=== PATIENT | female | born 1960 | race Two or more races ===

== ENCOUNTER 2017-09-22 18:24 | Emergency (ER) | payer MEDICAID ==
[~2017-09-22] VITALS: Ht 165.1 cm; Wt 62.6 kg
[~2017-09-22 18:24] MED LIST: ATOR20TA50; HYDR-4683 PO; MET25T PO; NAP500T PO; OXY10CRT PO; [UNRECOGNIZED DRUG - CODE] IV
[2017-09-22] MEDS ORDERED: ONDANSETRON HCL 4 MG/2 ML VIAL IV ONE (19:45)
[2017-09-22] MEDS ORDERED: MORPHINE SULFATE 4 MG/ML SYR/VIAL IV ONE (19:45)
[2017-09-22] MEDS ORDERED: cloNIDine HCL 0.1 MG TAB PO ONE (19:45)
[2017-09-22 20:49] LABS: Eosinophils # (auto) 0.2 uL; Monocytes # (auto) 0.6 uL; Neutrophils # (auto) 7.4 uL
[2017-09-22 20:52] LABS: Basophils # (auto) 0.1 uL; Basophils % (auto) 0.9 % (0.0-2.0); Eosinophils % (auto) 1.9 % (0.0-7.0); Hematocrit 42.6 % (36.0-46.0); Hemoglobin 14.6 g/dL (12.2-16.2); Lymphocytes # (auto) 1.1 uL; Mean Corpuscular Hgb Conc. 34.4 g/dL (32.0-36.0); Mean Corpuscular Volume 98.9 fL (80.0-100.0); Neutrophils % (auto) 79.2 % (37.0-80.0); Nucleated Red Blood Cells % 0.1 %; Platelet Count (auto) 265 10^3/uL (140-450); Red Cell Distribution Width 12.9 % (11.8-14.3); White Blood Cell 9.3 10^3/uL (4.4-10.8)
[2017-09-22 20:54] LABS: Albumin 3.2 g/dL (3.4-5.0); BUN/Creatinine Ratio 11.8; Calcium 8.6 mg/dL (8.5-10.1); Potassium 3.5 mmol/L (3.5-5.1)
[2017-09-22 20:59] LABS: Bilirubin, Total 0.5 mg/dL (0.2-1.0); Total Protein 7.1 g/dL (6.4-8.2)
[2017-09-22] MEDS ORDERED: IOHEXOL 350 MG/ML 100ML IJ ONE (21:28)
[2017-09-22 23:33] VITALS: BP 120/69
== END 2017-09-23 02:34 | disposition home or self-care (01) ==
LOC: ER 18:24
DX: S46.912A Strain of unspecified muscle, fascia and tendon at shoulder and upper arm level, left arm, initial encounter (principal); S66.912A Strain of unspecified muscle, fascia and tendon at wrist and hand level, left hand, initial encounter; R07.89 Other chest pain; J45.909 Unspecified asthma, uncomplicated; I10 Essential (primary) hypertension; Z86.73 Personal history of transient ischemic attack (TIA), and cerebral infarction without residual deficits; Z98.51 Tubal ligation status; W19.XXXA Unspecified fall, initial encounter; Y93.89 Activity, other specified; Y99.8 Other external cause status; Y92.89 Other specified places as the place of occurrence of the external cause
CPT/HCPCS: 36415; 71046; 71275; 73060; 73090; 73120; 80053; 83880; 84484; 85025; 85379; 93005; 96374; 96375; 99285; J2270; J2405; Q9967

== ENCOUNTER 2017-12-09 13:33 | Inpatient (IN) | payer MEDICAID ==
[~2017-12-09] VITALS: Ht 165.1 cm; Wt 73.3 kg
[2017-12-09] MEDS ORDERED: SODIUM CHLORIDE 0.9% 1,000 ML IV ONE (14:27)
[2017-12-09] MEDS ORDERED: cefTRIAXone 1GM/10ml IVPUSH 10 ML IV ONE (14:30)
[2017-12-09] MEDS ORDERED: VANCOMYCIN 1GM/250ML 250 ML IV ONE (14:30)
[2017-12-09 15:07] LABS: Basophils # (auto) 0 uL; Basophils % (auto) 0.2 % (0.0-2.0); Eosinophils # (auto) 0 uL; Hemoglobin 12.8 g/dL (12.2-16.2)
[2017-12-09 15:08] LABS: Eosinophils % (auto) 0.1 % (0.0-7.0); Hematocrit 37.5 % (36.0-46.0); Lymphocytes # (auto) 0.5 uL; Lymphocytes % (auto) 3.7 % (10.0-50.0); Mean Corpuscular Hemoglobin 33.3 pg (28.0-32.0); Mean Corpuscular Hgb Conc. 34.1 g/dL (32.0-36.0); Mean Corpuscular Volume 97.7 fL (80.0-100.0); Monocytes # (auto) 0.7 uL; Monocytes % (auto) 5.3 % (0.0-12.0); Neutrophils % (auto) 90.7 % (37.0-80.0); Platelet Count (auto) 528 10^3/uL (140-450); Red Blood Cells 3.84 10^6/uL (4.0-5.20); Red Cell Distribution Width 12.8 % (11.8-14.3); White Blood Cell 13.3 10^3/uL (4.4-10.8)
[2017-12-09 15:26] LABS: Alanine Aminotransferase 18 U/L (13-56); Albumin 2.9 g/dL (3.4-5.0); Alkaline Phosphatase 83 U/L (45-117); Anion Gap 9 (5-15); Aspartate Aminotransferase 13 U/L (15-37); BUN/Creatinine Ratio 6.9; Bilirubin, Total 0.7 mg/dL (0.2-1.0); Blood Urea Nitrogen 6 mg/dL (7-18); Calcium 8.9 mg/dL (8.5-10.1); Carbon Dioxide 26 mmol/L (21-32); Chloride 100 mmol/L (98-107); GFR African American 87 mL/min; GFR Non-African American 72 mL/min; Glucose 118 mg/dL (74-106); Potassium 3.4 mmol/L (3.5-5.1); Sodium 135 mmol/L (136-145)
[2017-12-09 15:27] LABS: INR 1.07 (0.9-1.15); Prothrombin Time 11.4 sec (9.27-12.13)
[2017-12-09] MEDS: SODIUM CHLORIDE 0.9% 1,000 ML IV SCH (16:56)
[2017-12-09] MEDS ORDERED: TEMAZEPAM 15 MG CAP PO PRN (17:00)
[2017-12-09] MEDS ORDERED: ACETAMINOPHEN 500 MG TAB PO PRN (17:00)
[2017-12-09] MEDS ORDERED: VANCOMYCIN PER PHARMACY 0 MG IV SCH (17:00)
[2017-12-09] MEDS ORDERED: LORazepam 0.5 MG TAB PO PRN (17:00)
[2017-12-09] MEDS ORDERED: POTASSIUM CHL 20 Meq TABLET PO ONE (17:00)
[2017-12-09] MEDS ORDERED: LACTULOSE 20Gm/30ML SOLN PO PRN (17:00)
[2017-12-09] MEDS ORDERED: MORPHINE SULF INJ 2 MG/ML SYRINGE 1ML IV PRN (17:00)
[2017-12-09] MEDS ORDERED: PROMETHAZINE HCL 25 MG/ML 1ML IV PRN (17:00)
[2017-12-09] MEDS ORDERED: NITROGLYCERIN 0.4 MG SL TAB SL PRN (17:00)
[2017-12-09 17:44] LABS: CRP High Sensitivity 16.2 mg/dL (< 0.3); Uric Acid 7.2 mg/dL (2.6-6.0)
[2017-12-09] MEDS: MORPHINE SULFATE 4 MG/ML SYR/VIAL IV PRN ×2 (17:47→21:24)
[2017-12-09 18:30] VITALS: BP 138/62
[2017-12-09 19:50] VITALS: BP 119/72
[2017-12-09 20:33] LABS: Urine Bacteria FEW /hpf (None Seen); Urine Blood Negative /uL (Negative); Urine Specific Gravity 1.008 (1.001-1.035); Urine WBC 9 /hpf (0 - 5)
[2017-12-09 22:00] VITALS: BP 119/74
[2017-12-09] MEDS ORDERED: COLCHICINE 0.6 MG TAB PO ONE (23:15)
[2017-12-10] MEDS ORDERED: NAPROXEN 500 MG TAB PO ONE
[2017-12-10] MEDS: SODIUM CHLORIDE 0.9% 1,000 ML IV SCH (03:02)
[2017-12-10] MEDS: VANCOMYCIN 1GM/250ML 250 ML IV SCH ×2 (03:02→15:26)
[2017-12-10] MEDS: MORPHINE SULFATE 4 MG/ML SYR/VIAL IV PRN ×3 (03:51→20:30)
[2017-12-10 05:00] VITALS: BP 120/71
[2017-12-10] MEDS ORDERED: COLCHICINE 0.6 MG TAB PO ONE (05:00)
[2017-12-10 05:56] LABS: Basophils # (auto) 0 uL; Basophils % (auto) 0.5 % (0.0-2.0); Eosinophils # (auto) 0.1 uL; Eosinophils % (auto) 0.6 % (0.0-7.0); Hematocrit 31.3 % (36.0-46.0); Hemoglobin 10.7 g/dL (12.2-16.2); Lymphocytes # (auto) 0.4 uL; Lymphocytes % (auto) 4.4 % (10.0-50.0); Mean Corpuscular Hemoglobin 33.2 pg (28.0-32.0); Mean Corpuscular Hgb Conc. 34.1 g/dL (32.0-36.0); Mean Corpuscular Volume 97.4 fL (80.0-100.0); Monocytes # (auto) 0.7 uL; Monocytes % (auto) 8.3 % (0.0-12.0); Neutrophils # (auto) 7.3 uL; Neutrophils % (auto) 86.2 % (37.0-80.0); Nucleated Red Blood Cells % 0.1 %; Platelet Count (auto) 408 10^3/uL (140-450); Red Blood Cells 3.21 10^6/uL (4.0-5.20); Red Cell Distribution Width 12.7 % (11.8-14.3); White Blood Cell 8.5 10^3/uL (4.4-10.8)
[2017-12-10 06:19] LABS: Albumin 2.4 g/dL (3.4-5.0); BUN/Creatinine Ratio 9.9; Bilirubin, Total 0.6 mg/dL (0.2-1.0); Calcium 8.4 mg/dL (8.5-10.1); Potassium 3.7 mmol/L (3.5-5.1); Total Protein 6.2 g/dL (6.4-8.2)
[2017-12-10] MEDS: cefTRIAXone 1GM/10ml IVPUSH 10 ML IV SCH (08:41)
[2017-12-10 08:58] VITALS: BP 116/70
[2017-12-10] MEDS: COLCHICINE 0.6 MG TAB PO SCH ×2 (11:17→21:19)
[2017-12-10] MEDS: NAPROXEN 500 MG TAB PO SCH ×2 (11:17→21:19)
[2017-12-10] MEDS: PANTOPRAZOLE 40 MG TAB PO SCH (11:17)
[2017-12-10 14:11] VITALS: BP 126/77
[2017-12-10] MEDS: HYDROcodone-ACET 5/325MG TAB PO PRN (15:12)
[2017-12-10 17:13] VITALS: BP 130/77
[2017-12-10 22:00] VITALS: BP 131/83
[2017-12-11] MEDS: MORPHINE SULFATE 4 MG/ML SYR/VIAL IV PRN ×2 (01:26→15:03)
[2017-12-11] MEDS: VANCOMYCIN 1GM/250ML 250 ML IV SCH (02:39)
[2017-12-11 05:00] VITALS: BP 122/78
[2017-12-11 07:00] LABS: Basophils # (auto) 0 uL; Basophils % (auto) 0.4 % (0.0-2.0); Eosinophils # (auto) 0.4 uL; Hematocrit 33.7 % (36.0-46.0); Hemoglobin 11.3 g/dL (12.2-16.2); Lymphocytes # (auto) 0.5 uL; Lymphocytes % (auto) 11.9 % (10.0-50.0); Mean Corpuscular Hemoglobin 32.6 pg (28.0-32.0); Mean Corpuscular Hgb Conc. 33.3 g/dL (32.0-36.0); Mean Corpuscular Volume 97.8 fL (80.0-100.0); Monocytes # (auto) 0.4 uL; Monocytes % (auto) 9.6 % (0.0-12.0); Neutrophils # (auto) 3.2 uL; Neutrophils % (auto) 70.1 % (37.0-80.0); Platelet Count (auto) 383 10^3/uL (140-450); Red Blood Cells 3.45 10^6/uL (4.0-5.20); Red Cell Distribution Width 12.5 % (11.8-14.3); White Blood Cell 4.5 10^3/uL (4.4-10.8)
[2017-12-11] MEDS: ALBUTEROL SULF 2.5 MG/0.5ML(0.5%) NEB SOLN NEB PRN (07:07)
[2017-12-11 09:00] VITALS: BP 135/74
[2017-12-11] MEDS: cefTRIAXone 1GM/10ml IVPUSH 10 ML IV SCH (09:34)
[2017-12-11] MEDS: COLCHICINE 0.6 MG TAB PO SCH ×2 (09:35→21:53)
[2017-12-11] MEDS: PANTOPRAZOLE 40 MG TAB PO SCH (09:35)
[2017-12-11] MEDS: NAPROXEN 500 MG TAB PO SCH ×2 (09:35→21:53)
[2017-12-11] MEDS: HYDROcodone-ACET 5/325MG TAB PO PRN (10:20)
[2017-12-11 13:22] VITALS: BP 138/71
[2017-12-11] MEDS: VANCOMYCIN 750 MG in D5W 5% 250 ML IV SCH (15:00)
[2017-12-11 17:26] VITALS: BP 146/77
[2017-12-11 22:00] VITALS: BP 155/86
[2017-12-12] MEDS: MORPHINE SULFATE 4 MG/ML SYR/VIAL IV PRN ×5 (00:38→23:34)
[2017-12-12] MEDS: VANCOMYCIN 750 MG in D5W 5% 250 ML IV SCH (02:31)
[2017-12-12 05:00] VITALS: BP 143/86
[2017-12-12 09:00] VITALS: BP 134/77
[2017-12-12] MEDS: COLCHICINE 0.6 MG TAB PO SCH ×2 (09:41→21:29)
[2017-12-12] MEDS: cefTRIAXone 1GM/10ml IVPUSH 10 ML IV SCH (09:41)
[2017-12-12] MEDS: PANTOPRAZOLE 40 MG TAB PO SCH (09:42)
[2017-12-12] MEDS: NAPROXEN 500 MG TAB PO SCH ×2 (09:51→21:30)
[2017-12-12] MEDS: HYDROcodone-ACET 5/325MG TAB PO PRN ×2 (10:05→21:30)
[2017-12-12] MEDS ORDERED: FLUCONAZOLE 100 MG TAB PO ONE (10:15)
[2017-12-12 10:30] LABS: BUN/Creatinine Ratio 10.8; Potassium 3.5 mmol/L (3.5-5.1)
[2017-12-12 13:00] VITALS: BP 160/97
[2017-12-12 13:24] VITALS: BP 133/74
[2017-12-12 17:00] VITALS: BP 150/84
[2017-12-12 21:35] VITALS: BP 137/85
[2017-12-13] MEDS: MORPHINE SULFATE 4 MG/ML SYR/VIAL IV PRN ×2 (00:15→07:42)
[2017-12-13 05:41] VITALS: BP 135/75
[2017-12-13] MEDS: ALBUTEROL SULF 2.5 MG/0.5ML(0.5%) NEB SOLN NEB PRN (06:12)
[2017-12-13 08:11] LABS: Eosinophils # (auto) 0.4 uL; Lymphocytes % (auto) 21.4 % (10.0-50.0); Mean Corpuscular Hemoglobin 32.5 pg (28.0-32.0); Monocytes # (auto) 0.5 uL; Neutrophils # (auto) 2.8 uL
[2017-12-13 08:12] LABS: Basophils # (auto) 0 uL; Basophils % (auto) 0.9 % (0.0-2.0); Hematocrit 34.3 % (36.0-46.0); Hemoglobin 11.4 g/dL (12.2-16.2); Mean Corpuscular Hgb Conc. 33.2 g/dL (32.0-36.0); Mean Corpuscular Volume 97.8 fL (80.0-100.0); Neutrophils % (auto) 57.7 % (37.0-80.0); Platelet Count (auto) 474 10^3/uL (140-450); Red Cell Distribution Width 12.7 % (11.8-14.3); White Blood Cell 4.8 10^3/uL (4.4-10.8)
[2017-12-13 09:00] VITALS: BP 143/81
[2017-12-13] MEDS: cefTRIAXone 1GM/10ml IVPUSH 10 ML IV SCH (09:47)
[2017-12-13] MEDS: PANTOPRAZOLE 40 MG TAB PO SCH (09:48)
[2017-12-13] MEDS: COLCHICINE 0.6 MG TAB PO SCH (09:48)
[2017-12-13] MEDS ORDERED: FLUCONAZOLE 100 MG TAB PO SCH (10:00)
[2017-12-13] MEDS: NAPROXEN 500 MG TAB PO SCH (10:06)
[2017-12-13] MEDS ORDERED: cefTAZidime 1 GM in SODIUM CHL 0.9% 50 ML IV ONE (10:45)
[2017-12-13 13:00] VITALS: BP 124/73
[2017-12-13] MEDS ORDERED: cefTAZidime 1 GM in SODIUM CHL 0.9% 50 ML IV SCH (14:00)
== END 2017-12-13 14:45 | disposition home or self-care (01) | DRG 720 ==
LOC: ER 13:33 → EDBD 13:33 → TELE 13:34 → TELE-CENTR 18:28 → CENTRAL 12-10 19:10
PROVIDERS: ADMIT Internal Medicine; ATTEND Internal Medicine
PROC: 0S9C3ZZ Drainage of Right Knee Joint, Percutaneous Approach (ICD-10-PCS; principal; 2017-12-09)
DX: A41.9 Sepsis, unspecified organism (principal); E44.0 Moderate protein-calorie malnutrition; G90.522 Complex regional pain syndrome I of left lower limb; I10 Essential (primary) hypertension; L03.116 Cellulitis of left lower limb; J45.909 Unspecified asthma, uncomplicated; Z82.5 Family history of asthma and other chronic lower respiratory diseases; B96.5 Pseudomonas (aeruginosa) (mallei) (pseudomallei) as the cause of diseases classified elsewhere; E78.5 Hyperlipidemia, unspecified; G40.909 Epilepsy, unspecified, not intractable, without status epilepticus; L03.115 Cellulitis of right lower limb; M10.9 Gout, unspecified; F41.9 Anxiety disorder, unspecified; M17.11 Unilateral primary osteoarthritis, right knee; M20.10 Hallux valgus (acquired), unspecified foot; M20.41 Other hammer toe(s) (acquired), right foot; N39.0 Urinary tract infection, site not specified; Z88.2 Allergy status to sulfonamides; Z88.1 Allergy status to other antibiotic agents; Z88.0 Allergy status to penicillin; Z79.899 Other long term (current) drug therapy; Z86.73 Personal history of transient ischemic attack (TIA), and cerebral infarction without residual deficits; Z98.51 Tubal ligation status; Z83.3 Family history of diabetes mellitus; Z82.49 Family history of ischemic heart disease and other diseases of the circulatory system; Z82.61 Family history of arthritis; Z81.8 Family history of other mental and behavioral disorders; Z82.0 Family history of epilepsy and other diseases of the nervous system; Z82.3 Family history of stroke; Z84.1 Family history of disorders of kidney and ureter; Z83.2 Family history of diseases of the blood and blood-forming organs and certain disorders involving the immune mechanism; Z87.442 Personal history of urinary calculi
CPT/HCPCS: 36415; 71045; 73620; 78315; 80048; 80053; 80202; 81001; 83880; 84443; 84484; 84550; 85025; 85610; 85652; 85730; 86141; 86431; 86850; 86900; 86901; 87040; 87086; 87088; 87186; 87205; 89051; 89060; 93306; 93970; 94640; 96361; 96374; 96375; 97116; 97163; 97530; J0696; J7060

== ENCOUNTER 2018-03-03 17:25 | Inpatient (IN) | payer MEDICAID ==
[~2018-03-03] VITALS: Ht 165.1 cm; Wt 71.9 kg
[2018-03-03] MEDS ORDERED: MORPHINE SULFATE 4 MG/ML SYR/VIAL IV ONE ×3 (18:30→21:00)
[2018-03-03] MEDS ORDERED: ONDANSETRON HCL 4 MG/2 ML VIAL IV ONE (18:30)
[2018-03-03 18:54] LABS: Basophils # (auto) 0 uL; Basophils % (auto) 0.2 % (0.0-2.0); Eosinophils # (auto) 0.1 uL; Hematocrit 41.4 % (36.0-46.0); Hemoglobin 14.1 g/dL (12.2-16.2); Lymphocytes % (auto) 10.6 % (10.0-50.0); Mean Corpuscular Hemoglobin 32.6 pg (28.0-32.0); Monocytes # (auto) 0.5 uL; Monocytes % (auto) 5.1 % (0.0-12.0); Neutrophils # (auto) 7.6 uL; Neutrophils % (auto) 83.1 % (37.0-80.0); Platelet Count (auto) 315 10^3/uL (140-450); Red Blood Cells 4.32 10^6/uL (4.0-5.20); Red Cell Distribution Width 14.8 % (11.8-14.3); White Blood Cell 9.1 10^3/uL (4.4-10.8)
[2018-03-03 19:11] LABS: Albumin 3.5 g/dL (3.4-5.0); Calcium 8.7 mg/dL (8.5-10.1); Magnesium 2.5 mg/dL (1.6-2.6); Potassium 3.1 mmol/L (3.5-5.1)
[2018-03-03 19:18] LABS: BUN/Creatinine Ratio 10.4; Bilirubin, Total 0.2 mg/dL (0.2-1.0); Total Protein 7.2 g/dL (6.4-8.2)
[2018-03-03] MEDS ORDERED: ACETAMINOPHEN 500 MG TAB PO PRN (21:30)
[2018-03-03] MEDS ORDERED: ONDANSETRON HCL 4 MG/2 ML VIAL IV PRN (21:30)
[2018-03-03] MEDS: ATORVASTATIN 20 MG TAB PO SCH (22:55)
[2018-03-03] MEDS: METOPROLOL TARTRATE 25 MG TAB PO SCH (22:55)
[2018-03-03 23:00] VITALS: BP 162/99
[2018-03-03] MEDS ORDERED: ATOR20TA PO (23:31)
[2018-03-03] MEDS ORDERED: OXY10CRT PO (23:32)
[2018-03-03] MEDS ORDERED: MORP15TA PO (23:34)
[2018-03-03] MEDS ORDERED: METH-562 PO (23:34)
[2018-03-04 00:07] LABS: Urine Bacteria FEW /hpf (None Seen); Urine Blood Negative /uL (Negative); Urine Mucus FEW (None Seen); Urine Specific Gravity 1.005 (1.001-1.035); Urine WBC <1 /hpf (0 - 5)
[2018-03-04] MEDS: HYDROcodone-ACET 5/325MG TAB PO PRN ×3 (00:39→10:54)
[2018-03-04] MEDS: MORPHINE SULFATE 4 MG/ML SYR/VIAL IV PRN ×4 (01:30→20:59)
[2018-03-04 05:23] VITALS: BP 143/96
[2018-03-04 07:13] LABS: Basophils # (auto) 0 uL; Basophils % (auto) 0.4 % (0.0-2.0); Eosinophils # (auto) 0 uL; Eosinophils % (auto) 0.5 % (0.0-7.0); Hemoglobin 13.1 g/dL (12.2-16.2); Lymphocytes # (auto) 1.6 uL; Lymphocytes % (auto) 15.9 % (10.0-50.0); Mean Corpuscular Hemoglobin 32.5 pg (28.0-32.0); Mean Corpuscular Hgb Conc. 33.5 g/dL (32.0-36.0); Mean Corpuscular Volume 96.8 fL (80.0-100.0); Monocytes # (auto) 0.8 uL; Monocytes % (auto) 8.6 % (0.0-12.0); Neutrophils # (auto) 7.3 uL; Neutrophils % (auto) 74.6 % (37.0-80.0); Nucleated Red Blood Cells % 0.1 %; Platelet Count (auto) 299 10^3/uL (140-450); Red Blood Cells 4.02 10^6/uL (4.0-5.20); White Blood Cell 9.8 10^3/uL (4.4-10.8)
[2018-03-04 07:26] LABS: Potassium 3.5 mmol/L (3.5-5.1)
[2018-03-04 07:29] LABS: BUN/Creatinine Ratio 13.6
[2018-03-04 07:34] LABS: Calcium 8.2 mg/dL (8.5-10.1)
[2018-03-04 08:30] VITALS: BP 145/87
[2018-03-04] MEDS: METOPROLOL TARTRATE 25 MG TAB PO SCH ×2 (10:51→21:26)
[2018-03-04 12:06] VITALS: BP 151/84
[2018-03-04 17:16] VITALS: BP 154/88
[2018-03-04] MEDS: ATORVASTATIN 20 MG TAB PO SCH (21:25)
[2018-03-04 22:00] VITALS: BP 163/95
[2018-03-05 05:00] VITALS: BP 167/89
[2018-03-05 07:51] LABS: Basophils # (auto) 0 uL; Basophils % (auto) 0.2 % (0.0-2.0); Eosinophils # (auto) 0.1 uL; Hematocrit 37.9 % (36.0-46.0); Hemoglobin 12.9 g/dL (12.2-16.2); Lymphocytes # (auto) 0.9 uL; Lymphocytes % (auto) 7.4 % (10.0-50.0); Mean Corpuscular Hgb Conc. 34.1 g/dL (32.0-36.0); Mean Corpuscular Volume 96.8 fL (80.0-100.0); Monocytes # (auto) 0.7 uL; Monocytes % (auto) 5.9 % (0.0-12.0); Neutrophils # (auto) 10.2 uL; Neutrophils % (auto) 85.5 % (37.0-80.0); Platelet Count (auto) 286 10^3/uL (140-450); Red Blood Cells 3.91 10^6/uL (4.0-5.20); Red Cell Distribution Width 14.8 % (11.8-14.3); White Blood Cell 11.9 10^3/uL (4.4-10.8)
[2018-03-05 08:02] LABS: BUN/Creatinine Ratio 10.8; Calcium 8.8 mg/dL (8.5-10.1)
[2018-03-05] MEDS: MORPHINE SULFATE 4 MG/ML SYR/VIAL IV PRN (08:11)
[2018-03-05 09:20] VITALS: BP 150/86
[2018-03-05] MEDS: METOPROLOL TARTRATE 25 MG TAB PO SCH ×2 (10:24→21:25)
[2018-03-05] MEDS ORDERED: COLCPOW2 PO (12:59)
[2018-03-05 13:11] VITALS: BP 152/84
[2018-03-05] MEDS: oxyCODONE ER 10 MG TAB PO SCH ×2 (14:02→21:23)
[2018-03-05 16:57] VITALS: BP 141/82
[2018-03-05] MEDS: ATORVASTATIN 20 MG TAB PO SCH (21:23)
[2018-03-05] MEDS: MORPHINE SULF 15mg ER tab PO SCH (21:24)
[2018-03-05] MEDS: NAPROXEN 500 MG TAB PO SCH (21:24)
[2018-03-05] MEDS: METHOCARBAMOL 500 MG TAB PO SCH (21:24)
[2018-03-05] MEDS: COLCHICINE 0.6 MG CAP PO SCH (21:25)
[2018-03-05 21:39] VITALS: BP 144/87
[2018-03-06 04:43] VITALS: BP 119/77
[2018-03-06] MEDS: oxyCODONE ER 10 MG TAB PO SCH ×2 (05:33→15:14)
[2018-03-06 06:27] LABS: Basophils # (auto) 0 uL; Basophils % (auto) 0.3 % (0.0-2.0); Eosinophils # (auto) 0.3 uL; Eosinophils % (auto) 2.9 % (0.0-7.0); Hematocrit 37.6 % (36.0-46.0); Hemoglobin 12.8 g/dL (12.2-16.2); Lymphocytes # (auto) 1.3 uL; Lymphocytes % (auto) 13.7 % (10.0-50.0); Mean Corpuscular Hemoglobin 33.2 pg (28.0-32.0); Mean Corpuscular Hgb Conc. 33.9 g/dL (32.0-36.0); Mean Corpuscular Volume 97.9 fL (80.0-100.0); Monocytes % (auto) 10.3 % (0.0-12.0); Neutrophils # (auto) 6.8 uL; Neutrophils % (auto) 72.8 % (37.0-80.0); Platelet Count (auto) 274 10^3/uL (140-450); Red Blood Cells 3.85 10^6/uL (4.0-5.20); Red Cell Distribution Width 14.7 % (11.8-14.3); White Blood Cell 9.4 10^3/uL (4.4-10.8)
[2018-03-06 08:43] VITALS: BP 123/71
[2018-03-06] MEDS: METOPROLOL TARTRATE 25 MG TAB PO SCH (10:02)
[2018-03-06] MEDS: NAPROXEN 500 MG TAB PO SCH (10:03)
[2018-03-06] MEDS: MORPHINE SULF 15mg ER tab PO SCH (10:03)
[2018-03-06] MEDS: COLCHICINE 0.6 MG CAP PO SCH (10:03)
[2018-03-06] MEDS: METHOCARBAMOL 500 MG TAB PO SCH (10:03)
[2018-03-06 12:23] VITALS: BP 122/69
[2018-03-06 13:00] VITALS: BP 122/69
== END 2018-03-06 16:50 | disposition home or self-care (01) | DRG 342 ==
LOC: EDBD 17:25 → ER 17:25 → EDUNIT# 17:25 → CENTRAL 17:26
PROVIDERS: ADMIT Nurse Practitioner Family; ATTEND Internal Medicine
DX: S42.032A Displaced fracture of lateral end of left clavicle, initial encounter for closed fracture (principal); I69.354 Hemiplegia and hemiparesis following cerebral infarction affecting left non-dominant side; R56.9 Unspecified convulsions; E87.6 Hypokalemia; E78.5 Hyperlipidemia, unspecified; F41.9 Anxiety disorder, unspecified; W10.9XXA Fall (on) (from) unspecified stairs and steps, initial encounter; I10 Essential (primary) hypertension; J45.909 Unspecified asthma, uncomplicated; Z80.1 Family history of malignant neoplasm of trachea, bronchus and lung; Z80.41 Family history of malignant neoplasm of ovary; Z80.3 Family history of malignant neoplasm of breast; Z80.8 Family history of malignant neoplasm of other organs or systems; Z81.8 Family history of other mental and behavioral disorders; Z82.0 Family history of epilepsy and other diseases of the nervous system; Z82.49 Family history of ischemic heart disease and other diseases of the circulatory system; Z82.3 Family history of stroke; Z82.5 Family history of asthma and other chronic lower respiratory diseases; Z82.62 Family history of osteoporosis; Z83.3 Family history of diabetes mellitus; Z87.442 Personal history of urinary calculi; Z88.0 Allergy status to penicillin; Z88.2 Allergy status to sulfonamides; Z88.8 Allergy status to other drugs, medicaments and biological substances; Z88.1 Allergy status to other antibiotic agents; Z91.011 Allergy to milk products; Z98.51 Tubal ligation status; Y93.89 Activity, other specified; Y92.89 Other specified places as the place of occurrence of the external cause; Y99.8 Other external cause status
CPT/HCPCS: 36415; 70450; 71045; 71250; 72125; 73030; 80048; 80053; 80061; 81001; 83735; 84484; 85025; 96374; 96375; 96376; A6257; G0378; J2405

== ENCOUNTER 2018-09-06 13:00 | Emergency (ER) | payer MEDICAID ==
[~2018-09-06] VITALS: Ht 165.1 cm; Wt 68.0 kg
[~2018-09-06 13:00] MED LIST changes: +ATOR20TA PO; -ATOR20TA50; +COLCPOW2 PO; -HYDR-4683 PO; +METH-562 PO; +MORP15TA PO
[2018-09-06 13:18] VITALS: BP 202/101
[2018-09-06 14:54] LABS: Basophils # (auto) 0 uL; Basophils % (auto) 0.6 % (0.0-2.0); Hemoglobin 15.7 g/dL (12.2-16.2); Mean Corpuscular Hgb Conc. 34.5 g/dL (32.0-36.0); Neutrophils # (auto) 4.8 uL; Nucleated Red Blood Cells % 0.1 %
[2018-09-06 14:59] LABS: Eosinophils # (auto) 0.2 uL; Eosinophils % (auto) 3.6 % (0.0-7.0); Hematocrit 45.7 % (36.0-46.0); Lymphocytes # (auto) 1.3 uL; Lymphocytes % (auto) 19.1 % (10.0-50.0); Mean Corpuscular Hemoglobin 34.6 pg (28.0-32.0); Mean Corpuscular Volume 100.4 fL (80.0-100.0); Monocytes # (auto) 0.5 uL; Monocytes % (auto) 7.8 % (0.0-12.0); Neutrophils % (auto) 68.9 % (37.0-80.0); Platelet Count (auto) 330 10^3/uL (140-450); Red Blood Cells 4.55 10^6/uL (4.0-5.20); Red Cell Distribution Width 14.7 % (11.8-14.3)
[2018-09-06 15:24] LABS: Albumin 4.1 g/dL (3.4-5.0); Anion Gap 6 (5-15); Blood Urea Nitrogen 12 mg/dL (7-18); Calcium 9.2 mg/dL (8.5-10.1); Carbon Dioxide 29 mmol/L (21-32); Chloride 104 mmol/L (98-107); Glucose 85 mg/dL (74-106); Potassium 3.2 mmol/L (3.5-5.1); Sodium 139 mmol/L (136-145)
[2018-09-06 15:35] LABS: Alanine Aminotransferase 32 U/L (13-56); Alkaline Phosphatase 127 U/L (45-117); Aspartate Aminotransferase 28 U/L (15-37); BUN/Creatinine Ratio 13.3; Bilirubin, Total 0.4 mg/dL (0.2-1.0); GFR African American 83 mL/min; GFR Non-African American 69 mL/min; Total Protein 7.9 g/dL (6.4-8.2)
== END 2018-09-06 17:24 | disposition left against medical advice (07) ==
LOC: EDBD 13:00 → ER 13:00
DX: I10 Essential (primary) hypertension (principal); R51 Headache; R42 Dizziness and giddiness; Z53.21 Procedure and treatment not carried out due to patient leaving prior to being seen by health care provider
CPT/HCPCS: 36415; 70450; 80053; 84484; 85025; 93005

== ENCOUNTER 2019-10-13 12:50 | Inpatient (IN) | payer MEDICAID ==
[~2019-10-13] VITALS: Ht 165.1 cm; Wt 77.4 kg
[2019-10-13] MEDS ORDERED: cloNIDine HCL 0.1 MG TAB PO ONE (13:15)
[2019-10-13 13:24] LABS: Eosinophils % (auto) 0.4 % (0.0-7.0); Hemoglobin 15.5 g/dL (12.2-16.2); Monocytes # (auto) 0.7 10 ^3/uL (0-1.3); White Blood Cell 11.6 10^3/uL (4.4-10.8)
[2019-10-13 13:26] LABS: Basophils # (auto) 0 10 ^3/uL (0-0.2); Basophils % (auto) 0.3 % (0.0-2.0); Eosinophils # (auto) 0 10 ^3/uL (0-0.8); Hematocrit 45.6 % (36.0-46.0); Lymphocytes # (auto) 0.6 10 ^3/uL (0.4-5.4); Lymphocytes % (auto) 5.3 % (10.0-50.0); Mean Corpuscular Hemoglobin 34.8 pg (28.0-32.0); Mean Corpuscular Volume 102.5 fL (80.0-100.0); Neutrophils # (auto) 10.2 10 ^3/uL (1.6-8.6); Platelet Count (auto) 281 10^3/uL (140-450); Red Blood Cells 4.45 10^6/uL (4.0-5.20); Red Cell Distribution Width 14.2 % (11.8-14.3)
[2019-10-13 13:46] LABS: Albumin 3.7 g/dL (3.4-5.0); Anion Gap 6 (5-15); Blood Urea Nitrogen 11 mg/dL (7-18); Calcium 8.6 mg/dL (8.5-10.1); Carbon Dioxide 30 mmol/L (21-32); Chloride 102 mmol/L (98-107); Glucose 102 mg/dL (74-106); Potassium 3.4 mmol/L (3.5-5.1); Sodium 138 mmol/L (136-145)
[2019-10-13 13:51] LABS: Alanine Aminotransferase 27 U/L (13-56); Alkaline Phosphatase 111 U/L (45-117); Aspartate Aminotransferase 24 U/L (15-37); BUN/Creatinine Ratio 13.3; Bilirubin, Total 0.7 mg/dL (0.2-1.0); GFR African American 91 mL/min; GFR Non-African American 75 mL/min; Total Protein 7.1 g/dL (6.4-8.2)
[2019-10-13] MEDS ORDERED: SODIUM CHLORIDE 0.9% 1,000 ML IVB ONE (15:48)
[2019-10-13] MEDS ORDERED: ONDANSETRON HCL 4 MG/2 ML VIAL IV ONE (16:00)
[2019-10-13] MEDS ORDERED: MORPHINE SULF INJ 2 MG/ML SYRINGE 1ML IV ONE ×2 (16:00→18:30)
[2019-10-13] MEDS ORDERED: KETOROLAC TROMETH 30 MG/ML 1ML VIAL IV ONE (16:15)
[2019-10-13 17:10] LABS: Urine Bacteria MANY /hpf (None Seen); Urine Blood 2+ /uL (Negative); Urine Mucus FEW (None Seen); Urine Specific Gravity 1.008 (1.001-1.035); Urine WBC 296 /hpf (0 - 5); Urine WBC Clumps PRESENT /hpf (None Seen)
[2019-10-13] MEDS ORDERED: cefTRIAXone 1GM/50ML D5W 50 ML IV ONE (17:30)
[2019-10-13] MEDS ORDERED: PROMETHAZINE HCL 25 MG/ML 1ML ONE (18:26)
[2019-10-13] MEDS ORDERED: PROMETHAZINE HCL 25 MG/ML 1ML IV ONE (18:30)
[2019-10-13] MEDS ORDERED: hydrALAZINE HCL 20 MG/ML VL ONE (19:08)
[2019-10-13] MEDS ORDERED: hydrALAZINE HCL 20 MG/ML VL IV ONE (19:15)
[2019-10-13] MEDS ORDERED: IPRATROPIUM BROM 0.5 MG/2.5ML INH SOL NEB ONE (19:15)
[2019-10-13] MEDS ORDERED: ACETAMINOPHEN 325 MG TAB PO ONE (19:30)
[2019-10-13] MEDS: LEVALBUTEROL HCL 1.25 MG/3 ML NEB NEB SCH (19:38)
[2019-10-13] MEDS ORDERED: ACETAMINOPHEN 325 MG TAB PO PRN (21:15)
[2019-10-13] MEDS ORDERED: LORazepam 0.5 MG TAB PO PRN (21:15)
[2019-10-13] MEDS ORDERED: DOCUSATE SOD 100 MG CAP PO PRN (21:15)
[2019-10-13] MEDS: SODIUM CHLORIDE 0.9% 1,000 ML IV SCH (21:28)
--- NOTE | 2019-10-13 22:27 | NUR ---
MS admit from ER NIDIA HARTNA I admitted to tele/MS at 2227. Patient oriented to RAJWINDER YIN, RN primary RN, unit, room, bed, and unit policies regarding patient care and visiting hours. Bed in lowest position, brakes are locked, bed rails up X 2, call light is within reach. Patient placed on 2 lpm O2 via NC with SpO2 97%. Patient weighed by bed scale and encouraged to call if she needs something. All questions and concerns addressed, patient verbalized understanding. Will continue to monitor Q1H and/or PRN. Note: []Patient has Smith catheter, IV R. forearm 24 g.
[2019-10-13 22:32] VITALS: BP 122/76
[2019-10-13] MEDS: METOPROLOL TARTRATE 25 MG TAB PO SCH (23:10)
[2019-10-13] MEDS: oxyCODONE ER 10 MG TAB PO SCH (23:11)
[2019-10-13] MEDS: NAPROXEN 500 MG TAB PO SCH (23:11)
[2019-10-13] MEDS: METHOCARBAMOL 500 MG TAB PO SCH (23:12)
[2019-10-13 23:53] VITALS: BP 122/76
[2019-10-14] VITALS (7 sets, daily range): BP systolic 111–142; BP diastolic 70–85
[2019-10-14] MEDS: LEVALBUTEROL HCL 1.25 MG/3 ML NEB NEB SCH ×4 (00:30→18:05)
[2019-10-14 05:48] LABS: Basophils # (auto) 0 10 ^3/uL (0-0.2); Basophils % (auto) 0.1 % (0.0-2.0); Eosinophils # (auto) 0 10 ^3/uL (0-0.8); Hematocrit 38.9 % (36.0-46.0); Lymphocytes # (auto) 0.7 10 ^3/uL (0.4-5.4); Monocytes # (auto) 1.1 10 ^3/uL (0-1.3)
[2019-10-14 05:50] LABS: Hemoglobin 13.1 g/dL (12.2-16.2); Lymphocytes % (auto) 2.7 % (10.0-50.0); Mean Corpuscular Hemoglobin 35.3 pg (28.0-32.0); Mean Corpuscular Hgb Conc. 33.7 g/dL (32.0-36.0); Mean Corpuscular Volume 104.7 fL (80.0-100.0); Monocytes % (auto) 4.1 % (0.0-12.0); Neutrophils # (auto) 24.9 10 ^3/uL (1.6-8.6); Neutrophils % (auto) 93.1 % (37.0-80.0); Platelet Count (auto) 197 10^3/uL (140-450); Red Blood Cells 3.72 10^6/uL (4.0-5.20); Red Cell Distribution Width 14.4 % (11.8-14.3); White Blood Cell 26.8 10^3/uL (4.4-10.8)
[2019-10-14] MEDS: oxyCODONE ER 10 MG TAB PO SCH ×3 (05:54→22:24)
[2019-10-14 06:04] LABS: Potassium 3.1 mmol/L (3.5-5.1)
[2019-10-14 06:45] LABS: BUN/Creatinine Ratio 14.4; Calcium 7.3 mg/dL (8.5-10.1)
--- NOTE | 2019-10-14 07:15 | NUR ---
Urine specimen for bacterial culture was sent to lab.
--- NOTE | 2019-10-14 07:30 | NUR ---
Opening Shift Note Assumed care of patient, awake and alert. No S/S of distress/SOB. Pain reported to lower back. Pain management options discussed with patient. Instructed on POC and to call for assist PRN, will continue to monitor for changes Q1hr and PRN.
[2019-10-14] MEDS: SODIUM CHLORIDE 0.9% 1,000 ML IV SCH ×2 (07:36→17:34)
[2019-10-14] MEDS: NAPROXEN 500 MG TAB PO SCH ×2 (10:00→22:23)
[2019-10-14] MEDS: ATORVASTATIN 20 MG TAB PO SCH (10:16)
[2019-10-14] MEDS: METOPROLOL TARTRATE 25 MG TAB PO SCH ×2 (10:16→22:22)
[2019-10-14] MEDS: METHOCARBAMOL 500 MG TAB PO SCH ×2 (10:17→22:21)
[2019-10-14] MEDS: MORPHINE SULF INJ 2 MG/ML SYRINGE 1ML IV PRN ×2 (10:17→21:09)
[2019-10-14] MEDS: cefTRIAXone 1GM/50ML D5W 50 ML IV SCH (17:34)
--- NOTE | 2019-10-14 19:30 | NUR ---
Opening Shift Note Assumed care of patient, awake and alert. No S/S of distress/SOB or pain. Insructed on POC and to callfor assist PRN, will continue to monitor for changes Q1hr and PRN. Fall and safety precautions in place. Call light within reach.
[2019-10-15] MEDS: LEVALBUTEROL HCL 1.25 MG/3 ML NEB NEB SCH ×4 (00:12→18:28)
--- NOTE | 2019-10-15 00:15 | NUR ---
RT NOTE PT WAS SEEN BY RT FOR HHN TX. PT TOLERATES WELL VIA MASK. NO ADVERSE REACTION NOTED. Addendum: 10/15/19 at 0016 by Nereyda Burch RT Amended: Links added.
[2019-10-15] MEDS: MORPHINE SULF INJ 2 MG/ML SYRINGE 1ML IV PRN ×3 (04:02→23:34)
[2019-10-15] MEDS: SODIUM CHLORIDE 0.9% 1,000 ML IV SCH ×3 (04:22→23:55)
[2019-10-15 05:00] VITALS: BP 137/81
--- NOTE | 2019-10-15 05:00 | NUR ---
COVID SWAB Nasopharyngeal COVID swab obtained and given to lab per surgical protocol. Patient tolerated well.
[2019-10-15] MEDS: oxyCODONE ER 10 MG TAB PO SCH ×3 (05:44→21:22)
[2019-10-15 06:21] LABS: Basophils # (auto) 0 10 ^3/uL (0-0.2); Basophils % (auto) 0.1 % (0.0-2.0); Eosinophils # (auto) 0.2 10 ^3/uL (0-0.8); Eosinophils % (auto) 1.3 % (0.0-7.0); Hematocrit 38.4 % (36.0-46.0); Lymphocytes # (auto) 1.1 10 ^3/uL (0.4-5.4); Lymphocytes % (auto) 7.7 % (10.0-50.0); Mean Corpuscular Hemoglobin 35.4 pg (28.0-32.0); Mean Corpuscular Hgb Conc. 33.8 g/dL (32.0-36.0); Mean Corpuscular Volume 104.5 fL (80.0-100.0); Monocytes # (auto) 0.8 10 ^3/uL (0-1.3); Monocytes % (auto) 5.7 % (0.0-12.0); Neutrophils # (auto) 12.2 10 ^3/uL (1.6-8.6); Neutrophils % (auto) 85.2 % (37.0-80.0); Nucleated Red Blood Cells % 0.1 %; Platelet Count (auto) 194 10^3/uL (140-450); Red Blood Cells 3.67 10^6/uL (4.0-5.20); Red Cell Distribution Width 14.4 % (11.8-14.3); White Blood Cell 14.3 10^3/uL (4.4-10.8)
[2019-10-15 06:26] LABS: INR 1.07 (0.9-1.15); Partial Thromboplastin Time 30.2 sec (23.64-32.05)
[2019-10-15 06:28] LABS: Calcium 8.2 mg/dL (8.5-10.1); Potassium 3.5 mmol/L (3.5-5.1)
[2019-10-15 06:32] LABS: BUN/Creatinine Ratio 17.4
--- NOTE | 2019-10-15 08:00 | NUR ---
Opening Shift Note Assumed care of patient, awake and alert. No S/S of distress/SOB or pain, NPO for lithrotripsy. Instructed on POC and to yanci lfor assist PRN, will continue to monitor for changes Q1hr and PRN.
[2019-10-15 08:54] VITALS: BP 158/84
[2019-10-15] MEDS: cefTRIAXone 1GM/50ML D5W 50 ML IV SCH (09:04)
[2019-10-15] MEDS: METOPROLOL TARTRATE 25 MG TAB PO SCH ×2 (09:04→22:40)
[2019-10-15] MEDS: ATORVASTATIN 20 MG TAB PO SCH (10:00)
--- NOTE | 2019-10-15 13:45 | NUR ---
TRANSPORTED TO LITHROTRIPSY VIA HOSPITAL BED. ENDORSED CARE TO JG BENJAMIN RN.NO SIGNS OF DISTRESS, SOB DENIED PAIN; PATIENT TOLERATED WELL.
[2019-10-15] MEDS ORDERED: MIDAZOLAM HCL 1MG/1ML-2 ML VIAL ONE (14:09)
[2019-10-15] MEDS ORDERED: fentaNYL CITRATE 100 MCG/2 ML VL ONE (14:09)
[2019-10-15] MEDS ORDERED: MEPERIDINE HCL (50 MG/ML) 1 ML VIAL ONE (14:10)
[2019-10-15] MEDS ORDERED: PROPOFOL 10 MG/ML 20 ML IV ONE (14:27)
[2019-10-15] MEDS ORDERED: DexAMETHasone SOD PHOS 10MG/1ML VIAL INJ ONE (14:27)
[2019-10-15] MEDS ORDERED: ONDANSETRON HCL 4 MG/2 ML VIAL IV PRN (15:00)
[2019-10-15] MEDS ORDERED: LABETALOL HCL 5 MG/ML 4ML SYRINGE IV PRN (15:00)
[2019-10-15] MEDS ORDERED: MORPHINE SULFATE 4 MG/ML SYR/VIAL IV PRN (15:00)
[2019-10-15] MEDS ORDERED: ePHEDrine SULFATE 50 MG/ML AMP IV PRN (15:00)
[2019-10-15] MEDS ORDERED: MIDAZOLAM HCL 1MG/1ML-2 ML VIAL IV PRN (15:00)
[2019-10-15] MEDS ORDERED: FUROSEMIDE 20 MG/2 ML VIAL ONE (15:11)
[2019-10-15] MEDS ORDERED: FUROSEMIDE 20 MG/2 ML VIAL IV ONE (15:15)
[2019-10-15] MEDS ORDERED: HYDROmorphone HCL 2 MG/ML VL ONE (15:58)
[2019-10-15] MEDS ORDERED: MANNITOL FTV 25% 12.5 GM/50 ML 50 ML IV ONE (16:00)
[2019-10-15] MEDS: HYDROmorphone HCL 2 MG/ML VL IV PRN ×2 (16:00→16:14)
--- NOTE | 2019-10-15 16:20 | NUR ---
RETURNED FROM LITHOTRIPSY. PATIENT STABLE, DENIED PAIN. REPORT RECEIVED FROM HIRAL CASING TIER, PATIENT HAD EPISODE OF ELEVATED BP 160/87 P95 AND GAVE LASIX IV 20MG. WILL CONTINUE TO MONITOR
[2019-10-15 17:00] VITALS: BP 175/106
[2019-10-15] MEDS: cloNIDine HCL 0.1 MG TAB PO PRN (18:20)
[2019-10-15] MEDS: NAPROXEN 500 MG TAB PO SCH ×2 (18:20→21:21)
[2019-10-15] MEDS: METHOCARBAMOL 500 MG TAB PO SCH ×2 (18:20→21:21)
--- NOTE | 2019-10-15 19:15 | NUR ---
ENDORSED CARE TO NIGHT SMITHA LOVELL, ENDORSED BP RE-ASSESSMENT.
[2019-10-15 23:02] VITALS: BP 142/92
[2019-10-15] MEDS: ONDANSETRON HCL 4 MG/2 ML VIAL IV PRN (23:34)
[2019-10-16] MEDS: LEVALBUTEROL HCL 1.25 MG/3 ML NEB NEB SCH ×3 (00:11→11:41)
--- NOTE | 2019-10-16 00:18 | NUR ---
Respiratory note: AT BEDSIDE FOR MED ELLI HA.
[2019-10-16] MEDS: ONDANSETRON HCL 4 MG/2 ML VIAL IV PRN (04:51)
[2019-10-16] MEDS: MORPHINE SULF INJ 2 MG/ML SYRINGE 1ML IV PRN (04:51)
[2019-10-16 05:58] VITALS: BP 188/104
[2019-10-16] MEDS: oxyCODONE ER 10 MG TAB PO SCH ×2 (06:26→14:52)
[2019-10-16] MEDS: cloNIDine HCL 0.1 MG TAB PO PRN (06:26)
[2019-10-16 06:50] LABS: Basophils # (auto) 0 10 ^3/uL (0-0.2); Basophils % (auto) 0.1 % (0.0-2.0); Eosinophils # (auto) 0 10 ^3/uL (0-0.8); Hematocrit 39.4 % (36.0-46.0); Hemoglobin 13.3 g/dL (12.2-16.2); Lymphocytes # (auto) 0.3 10 ^3/uL (0.4-5.4); Lymphocytes % (auto) 2.7 % (10.0-50.0); Mean Corpuscular Hgb Conc. 33.9 g/dL (32.0-36.0); Mean Corpuscular Volume 103.4 fL (80.0-100.0); Monocytes # (auto) 0.2 10 ^3/uL (0-1.3); Monocytes % (auto) 1.8 % (0.0-12.0); Neutrophils # (auto) 10.5 10 ^3/uL (1.6-8.6); Neutrophils % (auto) 95.4 % (37.0-80.0); Platelet Count (auto) 217 10^3/uL (140-450); Red Blood Cells 3.81 10^6/uL (4.0-5.20); Red Cell Distribution Width 14.2 % (11.8-14.3); White Blood Cell 10.9 10^3/uL (4.4-10.8)
[2019-10-16 07:06] LABS: BUN/Creatinine Ratio 17.2; Calcium 8.7 mg/dL (8.5-10.1); Potassium 3.7 mmol/L (3.5-5.1)
[2019-10-16] MEDS: METOPROLOL TARTRATE 25 MG TAB PO SCH (08:49)
[2019-10-16] MEDS: ATORVASTATIN 20 MG TAB PO SCH (08:50)
[2019-10-16] MEDS: cefTRIAXone 1GM/50ML D5W 50 ML IV SCH (08:51)
[2019-10-16] MEDS: METHOCARBAMOL 500 MG TAB PO SCH (08:51)
[2019-10-16] MEDS: NAPROXEN 500 MG TAB PO SCH (08:51)
[2019-10-16 09:00] VITALS: BP 157/88
[2019-10-16] MEDS: SODIUM CHLORIDE 0.9% 1,000 ML IV SCH (09:06)
--- NOTE | 2019-10-16 12:30 | NUR ---
PAGED PICC LINE RN PATIENT DISCHARGED AWAITING MIDLINE PLACEMENT.
[2019-10-16 13:00] VITALS: BP 153/75
--- NOTE | 2019-10-16 13:25 | NUR ---
REPAGED PICC LINE RN
--- NOTE | 2019-10-16 13:32 | NUR ---
Opening Shift Note Assumed care of patient, awake and alert. No S/S of distress/SOB or pain. Instructed on POC and to call for assist PRN, will continue to monitor for changes Q1hr and PRN.Awaiting midline placement.Fall and safety precautions in place. Call light within reach
--- NOTE | 2019-10-16 13:49 | NUR ---
1349 10/16/19 Contacted by [facility] business services coordinator Rina requesting clarification of home IV order. Order written for Rocephin 1 Gram q8h x 13 days. Rina stated per pharmacist Rocephin usually given bid. I contacted Dr Ranjana Tena requesting clarification, he stated that the order should be Rocephin 1 Gram qday and that he would rewrite the order when he comes to see the patient.
--- NOTE | 2019-10-16 14:00 | NUR ---
Midline Placement: Patient educated on need for midline placement. All risks and benefits explained and all questions and concerns addresses prior to procedure. 18g/10cm midline inserted via right basilic vein using Ultrasound. Sterile technique utilized. Blood return obtained from lumen and flushed easily with NS using proper technique. Midline secured with saline lock; biodisc and occlusive dressing applied. Primary RN notified. Midline lot #[id number]
--- NOTE | 2019-10-16 14:37 | NUR ---
ENDORSED CARE TO MORENITA BONE
--- NOTE | 2019-10-16 15:00 | NUR ---
Assessment Patient is a 59-year-old female who is alert and oriented. Prior to admission patient lived home with family and functioned with assistance. Per patient her family helps her with her ADLs. Patient informed me she has a walker, cane, shower chair, and bedside commode with home use. Per patient she will return to her prior living arrangement post discharge and family will transport her home. Advised patient there is a social service consult for home health IV abx for 13 days. Patient informed me her family will assist with the IV abx. Patient informed me she has been on service with [facility]. Informed patient clinical information will be faxed to agency. Informed patient JOHNNY Rodney will complete IV abx. Informed patient she has the right to participate in all discharge planning. Patient verbalized understanding and agreed to discharge plan. Faxed clinical information to [facility]. Per Sallie with [facility] they are unable to accommodate patient needs due to no nurse available for IV abx. Informed patient [facility] does not have nurses available for IV abx and order was redirected to [facility] Per Aretha with [facility] [phone] patient has been accepted and service to start within 24hrs upon d/c day. Informed patient of accepting agency. Addendum: 10/17/19 at 0837 by PAUL HILL Amended: Links added.
[2019-10-16] MEDS ORDERED: CEFT1INJ17 IV (15:56)
--- NOTE | 2019-10-16 16:20 | NUR ---
faced paperwork from [facility] to Dr. Juan Tena
[2019-10-16 17:06] VITALS: BP 165/98
[2019-10-16 17:10] VITALS: BP 145/89
--- NOTE | 2019-10-16 18:15 | NUR ---
[facility] per Rina at [facility] antibiotics will be sent out to patients home, before Dr. Tena's signature received.
--- NOTE | 2019-10-16 18:40 | NUR ---
Telemetry admit from ER TANNERBENNIE I admitted to Telemetry unit after SBAR received. Patient oriented to Awilda Alberto, primary RN, unit, room, bed, and unit policies regarding patient care and visiting hours. Patient now on continuous telemetry monitoring, tele box # [] and telemetry reading on arrival to unit is []. Patient placed on bedside oxygen, weighed by bedscale and encouraged to call if they need something. All questions and concerns addressed, patient verbalized understanding. Note: []
--- NOTE | 2019-10-16 18:41 | NUR ---
Discharge instructions given as ordered. Encourage to follow up with PMD as instructed. All questions and concerns addressed. Patient verbalized understanding. Medication reconciliation form completed and copy given to patient. Ptient sent home with midline for home IV antibiotics. . Patient taken to vehicle via wheelchair with all personal belongings, accompanied by staff and family member. No distress noted at time of departure.
== END 2019-10-16 18:49 | disposition home health service (06) | DRG 720 ==
LOC: ER 12:50 → OVERFLOW 12:51 → WEST WING 22:28
PROVIDERS: ADMIT Hospitalist; ATTEND Hospitalist
PROC: 0TF7XZZ Fragmentation in Left Ureter, External Approach (ICD-10-PCS; principal; 2019-10-15 14:10)
DX: A41.9 Sepsis, unspecified organism (principal); J18.9 Pneumonia, unspecified organism; N13.6 Pyonephrosis; E78.5 Hyperlipidemia, unspecified; G89.4 Chronic pain syndrome; I10 Essential (primary) hypertension; Z20.828 Contact with and (suspected) exposure to other viral communicable diseases; F41.9 Anxiety disorder, unspecified; Z86.73 Personal history of transient ischemic attack (TIA), and cerebral infarction without residual deficits; Z87.442 Personal history of urinary calculi; Z88.1 Allergy status to other antibiotic agents; Z80.3 Family history of malignant neoplasm of breast; Z80.41 Family history of malignant neoplasm of ovary; Z80.8 Family history of malignant neoplasm of other organs or systems; Z81.8 Family history of other mental and behavioral disorders; Z82.0 Family history of epilepsy and other diseases of the nervous system; Z82.49 Family history of ischemic heart disease and other diseases of the circulatory system; Z82.5 Family history of asthma and other chronic lower respiratory diseases; Z82.62 Family history of osteoporosis; Z83.3 Family history of diabetes mellitus; Z82.3 Family history of stroke; Z80.1 Family history of malignant neoplasm of trachea, bronchus and lung; Z98.51 Tubal ligation status
CPT/HCPCS: 36415; 71045; 74018; 74176; 80048; 80053; 80061; 81001; 83735; 84484; 85025; 85610; 85730; 86850; 86900; 86901; 87040; 87086; 87088; 87186; 93005; 94640; 96361; 96365; 96375; G0378; J0696; J1100; J1885; J2250; J2405; J2704; J7060

== ENCOUNTER → 2019-10-23 | Emergency (ER) | payer MEDICAID ==
[~2019-10-23] VITALS: Ht 165.1 cm; Wt 65.8 kg
[~2019-10-23] MED LIST changes: +CEFT1INJ17 IV; -NAP500T PO; -[UNRECOGNIZED DRUG - CODE] IV; +cloNIDine HCL 0.1 MG TAB PO ONE
[2019-10-23 14:53] VITALS: BP 209/99
== END | disposition home or self-care (01) ==
LOC: ER 14:32
DX: N20.0 Calculus of kidney (principal); J45.909 Unspecified asthma, uncomplicated; I10 Essential (primary) hypertension; Z45.2 Encounter for adjustment and management of vascular access device; Z86.73 Personal history of transient ischemic attack (TIA), and cerebral infarction without residual deficits; Z98.51 Tubal ligation status; Z88.0 Allergy status to penicillin; Z88.2 Allergy status to sulfonamides; Z88.8 Allergy status to other drugs, medicaments and biological substances
CPT/HCPCS: 36410

== ENCOUNTER 2020-01-28 06:49 | Day surgery (SDC) | payer MEDICAID ==
[2020-01-24 16:48] LABS: Basophils # (auto) 0 10 ^3/uL (0-0.2); Basophils % (auto) 0.2 % (0.0-2.0); Eosinophils # (auto) 0.2 10 ^3/uL (0-0.8); Eosinophils % (auto) 2.5 % (0.0-7.0); Hematocrit 42.8 % (36.0-46.0); Hemoglobin 14.2 g/dL (12.2-16.2); Lymphocytes # (auto) 1.4 10 ^3/uL (0.4-5.4); Lymphocytes % (auto) 20.2 % (10.0-50.0); Mean Corpuscular Hemoglobin 31.8 pg (28.0-32.0); Mean Corpuscular Hgb Conc. 33.3 g/dL (32.0-36.0); Mean Corpuscular Volume 95.6 fL (80.0-100.0); Monocytes # (auto) 0.5 10 ^3/uL (0-1.3); Monocytes % (auto) 6.4 % (0.0-12.0); Neutrophils % (auto) 70.7 % (37.0-80.0); Platelet Count (auto) 326 10^3/uL (140-450); Red Blood Cells 4.47 10^6/uL (4.0-5.20); Red Cell Distribution Width 13.4 % (11.8-14.3); White Blood Cell 7.1 10^3/uL (4.4-10.8)
[2020-01-24 16:56] LABS: INR 1.03 (0.9-1.15); Partial Thromboplastin Time 26.6 sec (23.0-31.2); Urine Bacteria FEW /hpf (None Seen); Urine Blood Negative /uL (Negative); Urine Specific Gravity 1.004 (1.001-1.035); Urine WBC 11 /hpf (0 - 5)
[2020-01-24 16:59] LABS: Albumin 4.1 g/dL (3.4-5.0); Calcium 9.5 mg/dL (8.5-10.1); Potassium 3.4 mmol/L (3.5-5.1)
[2020-01-24 17:01] LABS: BUN/Creatinine Ratio 11.7
[2020-01-24 17:03] LABS: Bilirubin, Total 0.5 mg/dL (0.2-1.0); Total Protein 7.6 g/dL (6.4-8.2)
[~2020-01-28] VITALS: Ht 165.1 cm; Wt 68.9 kg
[~2020-01-28 06:49] MED LIST changes: -ATOR20TA PO; -CEFT1INJ17 IV; -cloNIDine HCL 0.1 MG TAB PO ONE
[2020-01-28] MEDS ORDERED: IOHEXOL 300 MG/ML 100ML BOTTLE IJ ONE (07:19)
[2020-01-28] MEDS ORDERED: MIDAZOLAM HCL 1MG/1ML-2 ML VIAL ONE (07:29)
[2020-01-28] MEDS ORDERED: MEPERIDINE HCL (50 MG/ML) 1 ML VIAL ONE (07:29)
[2020-01-28] MEDS ORDERED: fentaNYL CITRATE 100 MCG/2 ML VL ONE (07:29)
[2020-01-28] MEDS ORDERED: ceFAZolin 1GM/50ML 100 ML IV ONE (07:43)
[2020-01-28] MEDS ORDERED: PROPOFOL 10 MG/ML 20 ML IV ONE (08:12)
[2020-01-28] MEDS ORDERED: ONDANSETRON HCL 4 MG/2 ML VIAL ONE (08:12)
[2020-01-28] MEDS ORDERED: DexAMETHasone SOD PHOS 10MG/1ML VIAL INJ ONE (08:12)
[2020-01-28] MEDS ORDERED: ceFAZolin 1GM 2 GM in D5W 5% 100 ML IV ONE (08:15)
[2020-01-28] MEDS ORDERED: HYDROmorphone HCL 2 MG/ML VL IV PRN (08:30)
[2020-01-28] MEDS ORDERED: ONDANSETRON HCL 4 MG/2 ML VIAL IV PRN (08:30)
[2020-01-28] MEDS ORDERED: LABETALOL HCL 5 MG/ML 4ML SYRINGE IV PRN (08:30)
[2020-01-28] MEDS ORDERED: MORPHINE SULFATE 4 MG/ML SYR/VIAL IV PRN (08:30)
[2020-01-28] MEDS ORDERED: MIDAZOLAM HCL 1MG/1ML-2 ML VIAL IV PRN (08:30)
[2020-01-28] MEDS ORDERED: ePHEDrine SULFATE 50 MG/ML AMP IV PRN (08:30)
[2020-01-28] MEDS ORDERED: HYDROmorphone HCL 2 MG/ML VL IV ONE (09:55)
[2020-01-28 10:25] VITALS: BP 167/80
== END 2020-01-28 10:35 | disposition home or self-care (01) ==
LOC: SUR 06:49
PROVIDERS: ATTEND Urology
DX: N20.1 Calculus of ureter (principal); J45.909 Unspecified asthma, uncomplicated; I10 Essential (primary) hypertension; F41.9 Anxiety disorder, unspecified; F32.9 Major depressive disorder, single episode, unspecified; I71.4 Abdominal aortic aneurysm, without rupture; G89.29 Other chronic pain; Z88.0 Allergy status to penicillin; Z88.1 Allergy status to other antibiotic agents; Z91.011 Allergy to milk products; Z98.51 Tubal ligation status; Z86.73 Personal history of transient ischemic attack (TIA), and cerebral infarction without residual deficits; Z20.828 Contact with and (suspected) exposure to other viral communicable diseases; Z87.442 Personal history of urinary calculi; Z87.898 Personal history of other specified conditions
CPT/HCPCS: 36415; 52353; 74018; 80053; 81001; 82360; 85025; 85610; 85730; 88300; J0690; J1100; J1170; J2175; J2250; J2405; J2704; J3010; J7060; Q9967; U0003; 76000

== ENCOUNTER 2020-01-31 17:52 | Inpatient (IN) | payer MEDICAID ==
[~2020-01-31] VITALS: Ht 165.1 cm; Wt 76.2 kg
[2020-01-31] MEDS ORDERED: SODIUM CHLORIDE 0.9% 1,000 ML IVB ONE (18:00)
[2020-01-31] MEDS: LORazepam 2MG/ML-1ML VIAL ONE (18:54)
[2020-01-31] MEDS ORDERED: LORazepam 2MG/ML-1ML VIAL IV ONE (19:00)
[2020-01-31 19:37] LABS: Albumin 2.5 g/dL (3.4-5.0); Calcium 8.5 mg/dL (8.5-10.1); Potassium 3.6 mmol/L (3.5-5.1)
[2020-01-31 19:43] LABS: BUN/Creatinine Ratio 33.6; Total Protein 6.1 g/dL (6.4-8.2)
[2020-01-31 20:36] LABS: Basophils # (auto) 0 10 ^3/uL (0-0.2); Basophils % (auto) 0.1 % (0.0-2.0); Eosinophils # (auto) 0.1 10 ^3/uL (0-0.8); Hematocrit 34.4 % (36.0-46.0); Hemoglobin 11.7 g/dL (12.2-16.2); Lymphocytes # (auto) 0.2 10 ^3/uL (0.4-5.4); Lymphocytes % (auto) 1.4 % (10.0-50.0); Mean Corpuscular Hemoglobin 32.3 pg (28.0-32.0); Monocytes % (auto) 7.6 % (0.0-12.0); Neutrophils # (auto) 11.7 10 ^3/uL (1.6-8.6); Neutrophils % (auto) 89.9 % (37.0-80.0); Platelet Count (auto) 107 10^3/uL (140-450); Red Blood Cells 3.62 10^6/uL (4.0-5.20); Red Cell Distribution Width 14.2 % (11.8-14.3)
[2020-01-31 22:52] LABS: Urine Amorphous Crystal FEW /hpf (None Seen); Urine Bacteria FEW /hpf (None Seen); Urine Blood 2+ /uL (Negative); Urine Specific Gravity 1.012 (1.001-1.035); Urine WBC 57 /hpf (0 - 5); Urine WBC Clumps PRESENT /hpf (None Seen)
[2020-01-31] MEDS ORDERED: SODIUM CHLORIDE 0.9% 1,000 ML IV SCH (23:30)
[2020-01-31] MEDS ORDERED: MEROPENEM 1GM IVPB 100 ML IV ONE (23:30)
[2020-01-31] MEDS ORDERED: MORPHINE SULF INJ 2 MG/ML SYRINGE 1ML IV PRN (23:30)
[2020-01-31] MEDS ORDERED: NITROGLYCERIN 0.4 MG SL TAB SL PRN (23:30)
[2020-01-31] MEDS ORDERED: ACETAMINOPHEN 650 MG RECT SUPP PR PRN (23:45)
[2020-01-31] MEDS ORDERED: ONDANSETRON HCL 4 MG/2 ML VIAL IV PRN (23:45)
[2020-02-01] VITALS (7 sets, daily range): BP systolic 143–168; BP diastolic 87–100
--- NOTE | 2020-02-01 00:12 | NUR ---
MS admit from ER BENNIE HART I admitted to tele/MS after SBAR received. Patient oriented to Itzel pennington RN, unit, room, bed, and unit policies regarding patient care and visiting hours. Patient weighed by bed scale and encouraged to call if they need something. All questions and concerns addressed, patient verbalized understanding. Note: Came per stretcher awake, not in respiratory distress, placed in the bed comfortably, vital signs checked.
[2020-02-01] MEDS: oxyCODONE ER 10 MG TAB PO SCH ×2 (05:30→14:00)
[2020-02-01 06:37] LABS: Basophils # (auto) 0 10 ^3/uL (0-0.2); Basophils % (auto) 0.2 % (0.0-2.0); Eosinophils # (auto) 0.1 10 ^3/uL (0-0.8); Eosinophils % (auto) 0.9 % (0.0-7.0); Hematocrit 36.5 % (36.0-46.0); Hemoglobin 12.4 g/dL (12.2-16.2); Lymphocytes # (auto) 0.3 10 ^3/uL (0.4-5.4); Lymphocytes % (auto) 2.1 % (10.0-50.0); Mean Corpuscular Hemoglobin 32.3 pg (28.0-32.0); Mean Corpuscular Hgb Conc. 34.1 g/dL (32.0-36.0); Mean Corpuscular Volume 94.8 fL (80.0-100.0); Monocytes # (auto) 0.7 10 ^3/uL (0-1.3); Monocytes % (auto) 5.3 % (0.0-12.0); Neutrophils % (auto) 91.5 % (37.0-80.0); Platelet Count (auto) 131 10^3/uL (140-450); Red Blood Cells 3.85 10^6/uL (4.0-5.20); Red Cell Distribution Width 14.2 % (11.8-14.3); White Blood Cell 13.1 10^3/uL (4.4-10.8)
[2020-02-01 06:50] LABS: Albumin 2.2 g/dL (3.4-5.0); Calcium 8.5 mg/dL (8.5-10.1); Magnesium 2.3 mg/dL (1.6-2.6); Potassium 4.1 mmol/L (3.5-5.1)
[2020-02-01 06:53] LABS: BUN/Creatinine Ratio 35.5; Bilirubin, Total 0.8 mg/dL (0.2-1.0); Phosphorus 3.2 mg/dL (2.5-4.90); Total Protein 5.8 g/dL (6.4-8.2)
--- NOTE | 2020-02-01 07:14 | NUR ---
Report given to Elsi Cantu, patient is resting no distress, sitter at bedside.
--- NOTE | 2020-02-01 07:55 | NUR ---
Opening Shift Note Assumed care of patient, who is asleep at this time. No S/S of distress/SOB or pain. Instructed on POC and to call for assist PRN, will continue to monitor for changes Q1hr and PRN. Bed locked in lowest position with two side rails up and call light in reach.
[2020-02-01] MEDS: SODIUM CHLORIDE 0.9% 1,000 ML IV SCH ×2 (08:45→15:25)
[2020-02-01] MEDS: MEROPENEM 1GM IVPB 100 ML IV SCH ×2 (09:38→21:55)
[2020-02-01] MEDS: MORPHINE SULF 15mg ER tab PO SCH ×2 (09:39→21:56)
[2020-02-01] MEDS: COLCHICINE 0.6 MG CAP PO SCH ×2 (09:39→21:56)
[2020-02-01] MEDS: METOPROLOL TARTRATE 25 MG TAB PO SCH ×2 (09:40→21:00)
[2020-02-01] MEDS ORDERED: HEPARIN SODIUM (PORCINE) 5000 UNITS/ML 1ML VIAL SC SCH (10:00)
[2020-02-01] MEDS ORDERED: METHOCARBAMOL 500 MG TAB PO SCH (10:00)
--- NOTE | 2020-02-01 10:45 | NUR ---
RECEIVED A CALL FROM [facility] PATIENT HAS + BLOOD CULTURES GRAM NEGATIVE RODS. WILL REPORT TO PHYSICIAN.
--- NOTE | 2020-02-01 12:23 | NUR ---
CALLED CENTRAL OFFICE REPAIRER TO SPEAK TO THE ASSIGNED DOCTOR CORAL NDIAYE I WAS TRANSFERRED FROM [facility] TO [facility] IN WHICH THEY DID NOT KNOW THE PHYSICIAN. I WAS PLACED ON HOLD SO CENTRAL OFFICE REPAIRER COULD FIND OUT WHO THIS PHYSICIAN IS, THEN I WAS TRANSFERRED TO [facility] WHEN PR[facility] GIVEN TO SPEAK TO CENTRAL OFFICE REPAIRER HOLD TIME IS > 20 MIN. WILL ATTEMPT TO CALL LATER THIS AFTERNOON IF MD DOES NOT COME IN.
--- NOTE | 2020-02-01 12:26 | NUR ---
LAST NOTE WAS TO REPORT THE POSITIVE BLOOD CULTURES TO ATTENDING.
[2020-02-01] MEDS: D5W/LACTATED RINGERS 1,000 ML IV SCH (18:21)
[2020-02-01] MEDS: cloNIDine HCL 0.1 MG TAB PO SCH (18:37)
--- NOTE | 2020-02-01 19:30 | NUR ---
Opening Shift Note Assumed care of patient. Patient is asleep and arousal by shaking. No S/S of respiratory distress. Respirations are deep, regular , and non-labored. Patient reports slight pain in the abdomen. Will be addressed per dr's order. Instructed on POC and to call for assistance as needed. Bed in lowest locked position, side rails x 2 up, call light is within reach. Sitter is at bed side for safety measures. Will continue to monitor for changes Q1hr and PRN.
[2020-02-02] VITALS (7 sets, daily range): BP systolic 134–159; BP diastolic 77–89
[2020-02-02] MEDS: ACETAMINOPHEN 650 mg PER 20 mL UD PO PRN (00:17)
--- NOTE | 2020-02-02 01:10 | NUR ---
Out of unit Patient is taken to radiology department for head CT.
--- NOTE | 2020-02-02 01:25 | NUR ---
Head CT is done. Patient is transferred back to unit from radiology department. No s/s of respiratory distress. No pain reported. Patient is comfortably resting in bed. Oriented X 4. Will continue to monitor.
[2020-02-02] MEDS: D5W/LACTATED RINGERS 1,000 ML IV SCH ×3 (05:04→18:26)
[2020-02-02 06:26] LABS: Hematocrit 36.2 % (36.0-46.0); Hemoglobin 11.8 g/dL (12.2-16.2); Mean Corpuscular Hemoglobin 32.2 pg (28.0-32.0); Mean Corpuscular Hgb Conc. 32.5 g/dL (32.0-36.0); Platelet Count (auto) 118 10^3/uL (140-450); Red Blood Cells 3.66 10^6/uL (4.0-5.20); Red Cell Distribution Width 15.3 % (11.8-14.3); White Blood Cell 9.9 10^3/uL (4.4-10.8)
--- NOTE | 2020-02-02 06:32 | NUR ---
BM Patient had two liquid light brown bowel movements within last hour ([id number]).
[2020-02-02 07:27] LABS: Basophils % (manual) 0 (0.0-2.0); Blast Cells 0; Eosinophils % (manual) 0 (0-7); Metamyelocytes % 0; Myelocytes % 0; Promyelocytes % 0; Reactive Lymphocytes 0
[2020-02-02] MEDS: COLCHICINE 0.6 MG CAP PO SCH ×2 (11:02→22:14)
[2020-02-02] MEDS: MEROPENEM 1GM IVPB 100 ML IV SCH ×2 (11:02→22:14)
[2020-02-02] MEDS: METOPROLOL TARTRATE 25 MG TAB PO SCH ×2 (11:03→22:14)
[2020-02-02 12:58] LABS: Band Neutrophils % (manual) 1; Lymphocytes % (manual) 10 (10.0-50.0); Monocytes % (manual) 12 (0-12)
[2020-02-02] MEDS: cloNIDine HCL 0.1 MG TAB PO SCH ×2 (14:16→22:13)
[2020-02-02] MEDS: oxyCODONE HCL 5MG TAB PO PRN (18:35)
--- NOTE | 2020-02-02 19:30 | NUR ---
OPENING SHIFT NOTE Assumed care of patient who is alert and oriented x3 Sitter bedside and currently on 3L NC with no S/S of distress, denies and pain at this time. PIV to the right wrist gauge 20 running D5LR @125ml/hr. Patient is bedrest with lund placed on the 01/30 secured to leg, tubing is free of kinks, collection bag hung lower than the bladder, draining light henry urine with sediment to gravity. POC discussed with patient and all questions answered. Bed in lowest position locked and side rails up x3. Call light within reach. Will continue to monitor PRN.
[2020-02-03] VITALS (7 sets, daily range): BP systolic 148–165; BP diastolic 71–97
--- NOTE | 2020-02-03 01:20 | NUR ---
TEMPERATURE Patients temp was 102.9. Initiated cooling measures and will give PRN Tylenol.
[2020-02-03] MEDS: ACETAMINOPHEN 650 mg PER 20 mL UD PO PRN (01:24)
--- NOTE | 2020-02-03 01:30 | NUR ---
PAGEN[place]ky DE LEÓN [place] exchange to notify of a BP of 165/88mmHg. Patient has no PRN BP medication. Awaiting call back.
[2020-02-03] MEDS: D5W/LACTATED RINGERS 1,000 ML IV SCH ×3 (01:45→17:21)
--- NOTE | 2020-02-03 02:00 | NUR ---
NEW ORDERS Received new orders from for patients blood pressure. Will carry out.
[2020-02-03] MEDS: ENALAPRILAT 1.25 MG/ML-1ML VIAL IV PRN ×2 (02:04→18:25)
--- NOTE | 2020-02-03 02:30 | NUR ---
RECHECK TEMP Patients temp is now 98.3. Cooling measures discontinued.
[2020-02-03] MEDS: cloNIDine HCL 0.1 MG TAB PO SCH ×2 (10:29→22:27)
[2020-02-03] MEDS: COLCHICINE 0.6 MG CAP PO SCH ×2 (10:29→22:26)
[2020-02-03] MEDS: MEROPENEM 1GM IVPB 100 ML IV SCH ×2 (10:29→23:54)
[2020-02-03] MEDS: oxyCODONE HCL 5MG TAB PO PRN ×2 (10:30→22:27)
[2020-02-03] MEDS: METOPROLOL TARTRATE 25 MG TAB PO SCH ×2 (10:30→22:27)
[2020-02-03] MEDS: metroNIDAZOLE 500MG/100ML 100 ML IV SCH ×2 (16:16→22:28)
--- NOTE | 2020-02-03 18:21 | NUR ---
PATIENT IS REFUSING FOR ME TO REMOVE THE LANDA CATH UNTIL TOMORROW. BEDSIDE COMMODE AT THE BEDSIDE.
--- NOTE | 2020-02-03 19:25 | NUR ---
Opening shift note Assumed care of patient from day shift RN. Patient is A&Ox4, respirations even and non-labored with no s/s of distress at this time. Discussed the patients POC, and the patients desire to keep her Smith in for one more day. Patient was advised of the risks for keeping the Smith in place and the patient verbalized understanding but still wanted the Smith to stay in. Bed is in the lowest locked position with 3 side rails up. Patient advised to call for assistance and help with the bedpan. Sitter bedside, call light within reach. Will continue to monitor Q1hr and PRN.
--- NOTE | 2020-02-03 22:30 | NUR ---
Pain Patient c/o 10/ stomach pain and requested Oxycodon as this is her prescribed home pain medication. Administered oxycodon per EMAR. Will continue to monitor.
--- NOTE | 2020-02-03 22:39 | NUR ---
Called [facility] requested patient Berta to be bulleted No medication in [facility].
--- NOTE | 2020-02-03 23:53 | NUR ---
Patient stool sample collected Sent to Lab.
[2020-02-04] MEDS: ACETAMINOPHEN 650 mg PER 20 mL UD PO PRN (00:06)
--- NOTE | 2020-02-04 00:40 | NUR ---
Temperature 101.3 Administered Tylenol per EMAR and cooling measures. Will continue to monitor.
--- NOTE | 2020-02-04 00:41 | NUR ---
IV insertion IV access obtained, via clean sterile technique by inserting 20 gauge catheter at after attempt(s). IV secured properly. No trauma to site. Patient tolerated well. NOTE: Removed IV to right wrist due to swelling, redness and pain per patient. Catheter intact, pressure dressing applied. Patient tolerated well.
--- NOTE | 2020-02-04 01:10 | NUR ---
Reassessed patient temperature 101.9
--- NOTE | 2020-02-04 01:37 | NUR ---
Increased cooling measures Applied more ice bags, removed linen cover, and applied wet towels to forehead. Will continue to monitor.
[2020-02-04] MEDS: D5W/LACTATED RINGERS 1,000 ML IV SCH ×3 (01:45→18:25)
--- NOTE | 2020-02-04 02:16 | NUR ---
Temperature rechecked: 98.7 Patient resting without s/s of distress at this time. Will continue to monitor.
[2020-02-04 06:00] VITALS: BP 154/78
[2020-02-04] MEDS: metroNIDAZOLE 500MG/100ML 100 ML IV SCH ×3 (06:51→23:05)
[2020-02-04 06:52] LABS: Basophils # (auto) 0.1 10 ^3/uL (0-0.2); Basophils % (auto) 0.4 % (0.0-2.0); Eosinophils # (auto) 0.1 10 ^3/uL (0-0.8); Eosinophils % (auto) 0.4 % (0.0-7.0); Hematocrit 36.7 % (36.0-46.0); Hemoglobin 12.9 g/dL (12.2-16.2); Lymphocytes # (auto) 0.8 10 ^3/uL (0.4-5.4); Lymphocytes % (auto) 5.2 % (10.0-50.0); Mean Corpuscular Hemoglobin 32.8 pg (28.0-32.0); Mean Corpuscular Hgb Conc. 35.3 g/dL (32.0-36.0); Mean Corpuscular Volume 93.1 fL (80.0-100.0); Monocytes # (auto) 1.4 10 ^3/uL (0-1.3); Monocytes % (auto) 8.9 % (0.0-12.0); Neutrophils # (auto) 13.1 10 ^3/uL (1.6-8.6); Neutrophils % (auto) 85.1 % (37.0-80.0); Platelet Count (auto) 121 10^3/uL (140-450); Red Blood Cells 3.94 10^6/uL (4.0-5.20); Red Cell Distribution Width 14.3 % (11.8-14.3); White Blood Cell 15.4 10^3/uL (4.4-10.8)
[2020-02-04 07:14] LABS: Calcium 8.1 mg/dL (8.5-10.1)
[2020-02-04 07:18] LABS: BUN/Creatinine Ratio 22.7
--- NOTE | 2020-02-04 07:30 | NUR ---
Opening Shift Note Assumed care of patient, awake and alert. No S/S of distress/SOB or pain. Instructed on POC and to call for assist PRN, will continue to monitor for changes Q1hr and PRN. Fall precautions in place per safety protocol.
--- NOTE | 2020-02-04 07:47 | NUR ---
Closing shift note Patient resting, respirations even and non-labored with no s/s of distress at this time. Endorsed care to day shift RN.
[2020-02-04 08:00] VITALS: BP 152/75
[2020-02-04] MEDS: MEROPENEM 1GM IVPB 100 ML IV SCH ×3 (09:20→23:05)
[2020-02-04] MEDS: METOPROLOL TARTRATE 25 MG TAB PO SCH ×2 (09:21→23:04)
[2020-02-04] MEDS: COLCHICINE 0.6 MG CAP PO SCH ×2 (09:21→23:04)
[2020-02-04] MEDS: cloNIDine HCL 0.1 MG TAB PO SCH ×2 (09:21→23:04)
[2020-02-04] MEDS: oxyCODONE HCL 5MG TAB PO PRN ×2 (09:24→18:34)
--- NOTE | 2020-02-04 11:01 | NUR ---
PT REFUSED P.T. WILL ATTEMPT AGAIN IN P.M.
[2020-02-04 13:00] VITALS: BP 125/75
--- NOTE | 2020-02-04 13:00 | NUR ---
Endorsed care Endorsed care to Day shift SMITHA Kaiser at this time.
--- NOTE | 2020-02-04 13:05 | NUR ---
RECEIVED PATIENT PATIENT ALERT AND ORIENTED X4, ORIENTED PATIENT TO POC PATIENT VERBALIZED UNDERSTANDING PATIENT DENIES ALL PAIN SOB AND DISTRESS AT THIS TIME WILL CONTINUE TO MONITOR
[2020-02-04] MEDS ORDERED: POTASSIUM CHLORIDE 40 MEQ, LIDOCAINE 1% (LOCAL ANESTH.) 4 ML in SODIUM CHL 0.9% 100 ML IV ONE (14:00)
--- NOTE | 2020-02-04 14:04 | NUR ---
Nutrition Assessment Est energy needs [id number] kcal (20-25 kcal/kg BW 74.2kg) Est protein needs 59-74g (0.8-1g/kg BW 74.2kg) Will reassess prn. Addendum: 02/04/20 at [address] Amended: Links added.
[2020-02-04] MEDS: VANCOMYCIN HCL 125MG/5ML ORAL SOL PO SCH ×3 (15:22→22:00)
[2020-02-04] MEDS: POTASSIUM EFFERVESENT TAB 25 MEQ PO SCH (15:23)
[2020-02-04 17:00] VITALS: BP_SYST 149; BP_SYST 163; BP_DIAS 70; BP_DIAS 80
--- NOTE | 2020-02-04 19:30 | NUR ---
Opening shift note Assumed care of patient from day shift RN. Patient A&Ox4, respirations even and non-labored with no s/s of distress at this time. Discussed POC with patient who verbalized understanding. Smith below patient draining to gravity. Bed in lowest locked position with 2 side rails up, call light within reach. Will continue to monitor Q1hr and PRN
[2020-02-04 21:59] VITALS: BP 156/67
[2020-02-04] MEDS: FLORASTOR (S. BOULARDII) 250 MG CAP PO SCH (23:04)
[2020-02-05] MEDS: D5W/LACTATED RINGERS 1,000 ML IV SCH ×3 (01:45→16:58)
--- NOTE | 2020-02-05 02:36 | NUR ---
Patient BM Changed bedpan. Patient had mucoid dark green brown diarrhea. Cleansed patient, applied barrier cream to perineum and inner thighs. Patient tolerated well.
[2020-02-05] MEDS: oxyCODONE HCL 5MG TAB PO PRN ×3 (03:25→22:03)
[2020-02-05] MEDS: MEROPENEM 1GM IVPB 100 ML IV SCH ×3 (04:47→22:05)
[2020-02-05] MEDS: metroNIDAZOLE 500MG/100ML 100 ML IV SCH ×3 (04:47→22:05)
[2020-02-05] MEDS: VANCOMYCIN HCL 125MG/5ML ORAL SOL PO SCH ×4 (04:48→22:05)
[2020-02-05 04:59] VITALS: BP 139/69
[2020-02-05 06:43] LABS: Basophils # (auto) 0 10 ^3/uL (0-0.2); Basophils % (auto) 0.2 % (0.0-2.0); Eosinophils # (auto) 0 10 ^3/uL (0-0.8); Eosinophils % (auto) 0.2 % (0.0-7.0); Hematocrit 33.4 % (36.0-46.0); Hemoglobin 11.3 g/dL (12.2-16.2); Lymphocytes # (auto) 0.7 10 ^3/uL (0.4-5.4); Lymphocytes % (auto) 3.3 % (10.0-50.0); Mean Corpuscular Hemoglobin 31.5 pg (28.0-32.0); Mean Corpuscular Hgb Conc. 33.9 g/dL (32.0-36.0); Mean Corpuscular Volume 92.9 fL (80.0-100.0); Monocytes # (auto) 1.5 10 ^3/uL (0-1.3); Monocytes % (auto) 7.2 % (0.0-12.0); Neutrophils # (auto) 18.1 10 ^3/uL (1.6-8.6); Neutrophils % (auto) 89.1 % (37.0-80.0); Nucleated Red Blood Cells % 0.1 %; Platelet Count (auto) 137 10^3/uL (140-450); Red Cell Distribution Width 14.6 % (11.8-14.3); White Blood Cell 20.3 10^3/uL (4.4-10.8)
[2020-02-05 07:05] LABS: Albumin 1.6 g/dL (3.4-5.0); BUN/Creatinine Ratio 21.9; Calcium 7.8 mg/dL (8.5-10.1); Potassium 3.2 mmol/L (3.5-5.1)
[2020-02-05 07:07] LABS: Bilirubin, Total 0.8 mg/dL (0.2-1.0); Total Protein 4.8 g/dL (6.4-8.2)
--- NOTE | 2020-02-05 07:37 | NUR ---
Closing shift note Patient resting without s/s of distress or labored breathing. Endorsed care to day shift RN.
[2020-02-05 08:56] VITALS: BP 136/72
[2020-02-05] MEDS: POTASSIUM EFFERVESENT TAB 25 MEQ PO SCH ×2 (09:32→22:04)
[2020-02-05] MEDS: FLORASTOR (S. BOULARDII) 250 MG CAP PO SCH ×2 (09:33→22:03)
[2020-02-05] MEDS: METOPROLOL TARTRATE 25 MG TAB PO SCH ×2 (09:33→22:04)
[2020-02-05] MEDS: cloNIDine HCL 0.1 MG TAB PO SCH ×2 (09:33→22:03)
[2020-02-05] MEDS: COLCHICINE 0.6 MG CAP PO SCH ×2 (09:33→22:03)
[2020-02-05 12:57] VITALS: BP 133/74
[2020-02-05] MEDS ORDERED: POTASSIUM CHLORIDE 40 MEQ, LIDOCAINE 1% (LOCAL ANESTH.) 4 ML in SODIUM CHL 0.9% 100 ML IV ONE (16:00)
[2020-02-05 16:48] VITALS: BP 141/74
--- NOTE | 2020-02-05 19:20 | NUR ---
Opening shift note Assumed care of patient from day shift RN. Patient is A&Ox4, respirations even and non-labored with no s/s of distress at this time. Discussed POC with patient who verbalized understanding. Smith below patient draining to gravity. Bed in lowest locked position with two side rails up, call light within reach. Will continue to monitor Q1hr and PRN.
[2020-02-05 22:00] VITALS: BP_SYST 143; BP_SYST 158; BP_DIAS 79; BP_DIAS 89
[2020-02-06] MEDS: D5W/LACTATED RINGERS 1,000 ML IV SCH ×3 (01:45→17:13)
[2020-02-06 05:00] VITALS: BP 159/75
--- NOTE | 2020-02-06 05:21 | NUR ---
Patient BM Patient used the bedpan. Moved moderate amount of dark brown liquid stool. Patient bathed, barrier cream applied. Patient tolerated well.
--- NOTE | 2020-02-06 05:55 | NUR ---
IV insertion IV access obtained, via clean sterile technique by inserting 22 gauge catheter at after attempt(s). IV secured properly. No trauma to site. Patient tolerated well. NOTE: Left lower FA IV removed due to redness and swelling. Catheter intact, patient tolerated well.
[2020-02-06 06:10] LABS: Basophils # (auto) 0 10 ^3/uL (0-0.2); Basophils % (auto) 0.1 % (0.0-2.0); Eosinophils # (auto) 0.1 10 ^3/uL (0-0.8); Eosinophils % (auto) 0.5 % (0.0-7.0); Hematocrit 36.1 % (36.0-46.0); Hemoglobin 12.1 g/dL (12.2-16.2); Lymphocytes # (auto) 0.8 10 ^3/uL (0.4-5.4); Lymphocytes % (auto) 4.3 % (10.0-50.0); Mean Corpuscular Hemoglobin 31.2 pg (28.0-32.0); Mean Corpuscular Hgb Conc. 33.4 g/dL (32.0-36.0); Mean Corpuscular Volume 93.2 fL (80.0-100.0); Monocytes # (auto) 1.2 10 ^3/uL (0-1.3); Monocytes % (auto) 6.4 % (0.0-12.0); Neutrophils # (auto) 17.2 10 ^3/uL (1.6-8.6); Neutrophils % (auto) 88.7 % (37.0-80.0); Platelet Count (auto) 186 10^3/uL (140-450); Red Blood Cells 3.87 10^6/uL (4.0-5.20); Red Cell Distribution Width 14.4 % (11.8-14.3); White Blood Cell 19.3 10^3/uL (4.4-10.8)
[2020-02-06] MEDS: VANCOMYCIN HCL 125MG/5ML ORAL SOL PO SCH ×4 (06:29→22:23)
[2020-02-06] MEDS: MEROPENEM 1GM IVPB 100 ML IV SCH ×3 (06:30→22:23)
[2020-02-06] MEDS: metroNIDAZOLE 500MG/100ML 100 ML IV SCH ×2 (06:30→13:12)
[2020-02-06 06:32] LABS: Albumin 1.8 g/dL (3.4-5.0); Calcium 7.9 mg/dL (8.5-10.1); Potassium 3.7 mmol/L (3.5-5.1)
[2020-02-06 06:35] LABS: BUN/Creatinine Ratio 20.6; Bilirubin, Total 0.8 mg/dL (0.2-1.0); Total Protein 5.1 g/dL (6.4-8.2)
[2020-02-06 09:00] VITALS: BP_SYST 143; BP_SYST 161; BP_DIAS 75; BP_DIAS 81
[2020-02-06] MEDS: POTASSIUM EFFERVESENT TAB 25 MEQ PO SCH ×2 (10:35→22:23)
[2020-02-06] MEDS: COLCHICINE 0.6 MG CAP PO SCH ×2 (10:36→22:25)
[2020-02-06] MEDS: cloNIDine HCL 0.1 MG TAB PO SCH ×2 (10:36→22:24)
[2020-02-06] MEDS: FLORASTOR (S. BOULARDII) 250 MG CAP PO SCH ×2 (10:37→22:25)
[2020-02-06] MEDS: METOPROLOL TARTRATE 25 MG TAB PO SCH ×2 (10:37→22:24)
[2020-02-06] MEDS: oxyCODONE HCL 5MG TAB PO PRN ×2 (10:42→22:39)
--- NOTE | 2020-02-06 10:56 | NUR ---
Midline Placement: Patient educated on need for midline placement. All risks and benefits explained and all questions and concerns addresses prior to procedure. 18g/8 cm midline inserted via right brachial vein using Ultrasound. Sterile technique utilized. Blood return obtained from the single lumen and flushed easily with NS using proper technique. Midline secured with saline lock; biodisc and occlusive dressing applied. Primary RN Jimena notified. Midline lot # [id number]
--- NOTE | 2020-02-06 15:00 | NUR ---
D/C Planning Per SS consult for home health safety evaluation and IV abx. Account Development Associate Jacque will completed the IV abx. Faxed clinical information to [facility] and [facility]. Per Aretha with [facility] [phone] patient has been accepted and service to start within 24-48hrs upon d/c day. Obtain auth from [facility] [id number].
--- NOTE | 2020-02-06 15:56 | NUR ---
assessment Patient is a 59-year-old female who is alert and oriented. Prior to admission patient lived home with family and functioned with assistance. Per patient she will return to her prior living arrangement post discharge and family will transport her home. Per patient she has an [facility] caregiver. Patient informed me she has a fww and shower chair for home use. Patient is requesting a bedside commode on discharge. Patient informed me she will need IV ABX on discharge. Patient informed me she has help for thee IV ABX. I informed patient she has a right to participate in any and all discharge planning. Patient does not have a POA and advanced directive. I have offered patient information on POA and advanced directives. I informed the patient the advantages and benefits of having an Advanced Directive. Patient verbalized understanding and agreed to discharge plan. Addendum: 02/06/20 at 1600 by Naheed HILL Amended: Links added.
--- NOTE | 2020-02-06 15:58 | NUR ---
PER FABIÁN BANSAL WITH [facility] MAY REMAIN IN PLACE.
--- NOTE | 2020-02-06 16:34 | NUR ---
1545 02/06/20 - Faxed to [facility] at [phone] face sheet, order for home IV ABx Meropenem 1 gm IV q8hrs via midline x 7 days ,H/P, labs, meds, midline note. Received call from Gali at [facility] accepting patient for IV services. Per Gali teaching and delivery of IV supplies will be delivered to patient's home in AM. Addendum: 02/07/20 at 1150 by Jacque Bond RN [id number] 02/07/20 - Contacted by [facility] Gali who stated she has spoken with spouse and son who will be assisting patient with IV ABx at home. The supplies will be delivered today between the hours of 7p-11p and service to start on 02/08/20.
[2020-02-06 17:41] VITALS: BP 155/79
--- NOTE | 2020-02-06 19:30 | NUR ---
Opening Shift Note Assumed care of patient, awake and alert. No S/S of distress/SOB or pain. Instructed on POC and to call for assist PRN, will continue to monitor for changes Q1hr and PRN.
[2020-02-06 22:00] VITALS: BP 141/79
[2020-02-07] MEDS: D5W/LACTATED RINGERS 1,000 ML IV SCH ×2 (01:53→09:42)
[2020-02-07 05:00] VITALS: BP 146/78
[2020-02-07 05:56] LABS: Basophils # (auto) 0 10 ^3/uL (0-0.2); Basophils % (auto) 0.1 % (0.0-2.0); Eosinophils # (auto) 0.1 10 ^3/uL (0-0.8); Eosinophils % (auto) 0.4 % (0.0-7.0); Hematocrit 34.1 % (36.0-46.0); Hemoglobin 11.4 g/dL (12.2-16.2); Lymphocytes # (auto) 0.8 10 ^3/uL (0.4-5.4); Lymphocytes % (auto) 4.8 % (10.0-50.0); Mean Corpuscular Hgb Conc. 33.5 g/dL (32.0-36.0); Mean Corpuscular Volume 92.7 fL (80.0-100.0); Monocytes # (auto) 1.1 10 ^3/uL (0-1.3); Neutrophils # (auto) 13.9 10 ^3/uL (1.6-8.6); Neutrophils % (auto) 87.7 % (37.0-80.0); Platelet Count (auto) 251 10^3/uL (140-450); Red Blood Cells 3.68 10^6/uL (4.0-5.20); Red Cell Distribution Width 14.2 % (11.8-14.3); White Blood Cell 15.8 10^3/uL (4.4-10.8)
[2020-02-07] MEDS: VANCOMYCIN HCL 125MG/5ML ORAL SOL PO SCH ×2 (06:00→12:00)
[2020-02-07] MEDS: MEROPENEM 1GM IVPB 100 ML IV SCH ×2 (06:00→13:06)
[2020-02-07 06:20] LABS: Potassium 4.8 mmol/L (3.5-5.1)
[2020-02-07 06:33] LABS: Albumin 1.9 g/dL (3.4-5.0); Bilirubin, Total 0.8 mg/dL (0.2-1.0); Calcium 8.1 mg/dL (8.5-10.1); Total Protein 5.4 g/dL (6.4-8.2)
[2020-02-07] MEDS ORDERED: VANC125PO PO (07:49)
[2020-02-07 09:00] VITALS: BP 130/75
[2020-02-07] MEDS: cloNIDine HCL 0.1 MG TAB PO SCH (09:45)
[2020-02-07] MEDS: METOPROLOL TARTRATE 25 MG TAB PO SCH (09:46)
[2020-02-07] MEDS: FLORASTOR (S. BOULARDII) 250 MG CAP PO SCH (09:46)
[2020-02-07] MEDS: COLCHICINE 0.6 MG CAP PO SCH (09:47)
[2020-02-07] MEDS ORDERED: POTASSIUM EFFERVESENT TAB 25 MEQ PO SCH (10:00)
[2020-02-07 10:45] VITALS: BP 130/75
--- NOTE | 2020-02-07 11:28 | NUR ---
DR ANEESH HOLGUIN, LANDA TO REMAIN IN FOR DISCHARGE.
[2020-02-07 13:00] VITALS: BP 147/79
--- NOTE | 2020-02-07 14:29 | NUR ---
02 taken off this AM approx. 0800, 02 saturation at this time 95% room air. pt to discharge home , stated will pick her up after he gets off work at 1700.
--- NOTE | 2020-02-07 16:49 | NUR ---
LANDA BAG REPLACED WITH LEG BAG. CATHETER CARE TEACHING DONE. PT TO GO HOME WITH MIDLINE IN PLACE FOR ABX.
[2020-02-07 17:00] VITALS: BP 115/73
--- NOTE | 2020-02-07 17:10 | NUR ---
NOTED NAKIA AREA TO BE REDDENED, OPEN AREA ON LEFT SIDE. PICTURES TAKEN, REPORT FILED.
--- NOTE | 2020-02-07 18:31 | NUR ---
PT DISCHARGED HOME WITH FAMILY MEMBER
== END 2020-02-07 17:35 | disposition home health service (06) | DRG 720 ==
LOC: EDBD 17:52 → ER 17:52 → EDUNIT# 17:52 → OVERFLOW 17:53 → WEST WING 23:45
PROVIDERS: ADMIT Internal Medicine; ATTEND Internal Medicine
DX: A41.53 Sepsis due to Serratia (principal); G93.41 Metabolic encephalopathy; I10 Essential (primary) hypertension; A04.72 Enterocolitis due to Clostridium difficile, not specified as recurrent; G89.4 Chronic pain syndrome; N17.0 Acute kidney failure with tubular necrosis; B96.5 Pseudomonas (aeruginosa) (mallei) (pseudomallei) as the cause of diseases classified elsewhere; J45.909 Unspecified asthma, uncomplicated; F41.9 Anxiety disorder, unspecified; D69.6 Thrombocytopenia, unspecified; E87.6 Hypokalemia; R19.7 Diarrhea, unspecified; Z83.3 Family history of diabetes mellitus; Z80.1 Family history of malignant neoplasm of trachea, bronchus and lung; Z80.0 Family history of malignant neoplasm of digestive organs; Z80.3 Family history of malignant neoplasm of breast; Z80.41 Family history of malignant neoplasm of ovary; Z80.8 Family history of malignant neoplasm of other organs or systems; Z81.8 Family history of other mental and behavioral disorders; Z82.0 Family history of epilepsy and other diseases of the nervous system; Z82.49 Family history of ischemic heart disease and other diseases of the circulatory system; Z82.3 Family history of stroke; Z82.5 Family history of asthma and other chronic lower respiratory diseases; Z82.62 Family history of osteoporosis; Z86.73 Personal history of transient ischemic attack (TIA), and cerebral infarction without residual deficits; Z87.442 Personal history of urinary calculi; Z88.0 Allergy status to penicillin; Z88.2 Allergy status to sulfonamides; Z91.011 Allergy to milk products; N20.0 Calculus of kidney; Z79.899 Other long term (current) drug therapy
CPT/HCPCS: 36415; 51702; 70450; 74176; 80048; 80053; 81001; 83605; 83735; 84100; 85007; 85025; 85027; 85048; 87040; 87077; 87086; 87088; 87186; 87493; 93005; 96361; 96374; 97110; 97530; G0378; J2001; J2185; J3490